=== PATIENT | male | born 1940 | race Caucasian/White ===

== ENCOUNTER 2016-11-12 16:28 | Emergency (ER) | payer MEDICARE, OTHER ==
[2016-11-12] MEDS ORDERED: Sodium Chloride 0.9% 10 ML Syringe FLUSH PRN (17:03)
[2016-11-12] MEDS ORDERED: Albuterol/Ipratropium 3.0-0.5 MG/3 ML Neb Soln NEB ONE (17:04)
[2016-11-12 17:43] VITALS: BP 173/91
[2016-11-12 18:09] LABS: CHLORIDE,CL 98 mmol/L (101-111); SODIUM,NA 139 mmol/L (135-145)
[2016-11-12] MEDS ORDERED: Aspirin 81 MG Tab.Chew PO ONE (18:35)
[2016-11-12] MEDS ORDERED: Clindamycin Phosphate 900 MG in Sodium Chloride 0.9% 100 ML IV ONE (18:36)
--- NOTE | 2016-11-12 19:00 | EDM.PDOC ---
Scribed by Denisse Carlin 11/12/16 1900 for Ashutosh Colin MD ED HISTORY OF PRESENT ILLNESS - General Chief Complaint: Respiratory Problem Stated Complaint: SOB Time Seen by Provider: 11/12/16 17:00 Source of Information: Reports: Patient, RN, RN notes reviewed History Limitations: Reports: No limitations - History of Present Illness INITIAL COMMENTS - FREE TEXT/NARRATIVE: Patient complaining of progressive worsening SOB x3-4 days with productive cough and green sputum. Admits to mild sore throat. Has a mild persistent chest pressure, but he isn't sure how long it has been there. Patient attributed the pressure to the cough. He has felt flush/feverish but didn't measure temperature. Severity: moderate Location, General: Reports: chest, other (throat) Quality: Reports: Ache Improves with: Reports: None Worsens with: Reports: None Associated Symptoms (General): Reports: no other symptoms - Related Data Allergies/ADRs: Allergies Allergy/AdvReac Type Severity Reaction Status Date / Time cefotaxime Allergy Rash Verified 10/31/15 23:38 clonazepam Allergy Hallucinati Verified 10/31/15 23:38 ons erythromycin base Allergy Cannot Verified 10/31/15 23:38 Remember erythromycin lactobionate Allergy Rash Verified 10/31/15 23:38 [From Erythrocin] roflumilast Allergy Rash Verified 10/31/15 23:38 sulfamethoxazole Allergy Itching Verified 10/31/15 23:38 [From Bactrim] trimethoprim [From Bactrim] Allergy Itching Verified 10/31/15 23:38 lilac pink herb Allergy Rash Uncoded 12/04/13 19:55 Home Meds: Home Meds Furosemide [Lasix] 40 mg PO BID 12/04/13 [History] Multivitamin [One-A-Day Essential] 1 each PO DAILY 12/04/13 [History] Potassium Chloride [Potassium Chloride Solution] 20 meq PO DAILY 12/04/13 [ History] Tiotropium [Spiriva Handihaler] 1 cap INH DAILY 12/04/13 [History] atorvaSTATin [Lipitor] 20 mg PO BEDTIME 12/04/13 [History] metFORMIN [Glucophage XR] 2 tab PO BIDM 12/04/13 [History] Tolterodine [Detrol LA 24 Hr] 2 mg PO DAILY 07/27/14 [History] Diclofenac Sodium/Misoprostol [Arthrotec 75 mg-200 Mcg Tab] 75 mg PO BID [History] Albuterol Sulfate [Albuterol Sulfate] 1 ampule IH BID PRN 03/18/15 [History] Albuterol [Proventil HFA] 2 puff IH BID PRN 03/18/15 [History] Montelukast [Singulair] 10 mg PO BEDTIME 03/18/15 [History] Nitroglycerin [Nitrostat] 1 tab BUCCAL ASDIRECTED 03/18/15 [History] Apixaban [Eliquis] 08/21/16 [History] Apixaban [Eliquis] 2.5 mg PO BID 08/21/16 [History] PARoxetine [Paxil] 20 mg PO DAILY 08/21/16 [History] Past Medical History HEENT History: Reports: Impaired vision Other HEENT History: wears glasses Cardiovascular History: Reports: High cholesterol, Hypertension, [place], Stents Respiratory History: Reports: Bronchitis, recurrent, COPD, SOB Genitourinary History: Reports: BPH Musculoskeletal History: Reports: Osteoarthritis Psychiatric History: Reports: Anxiety, Depression Endocrine/Metabolic History: Reports: Diabetes, type II - Past Surgical History HEENT Surgical History: Reports: Cataract surgery GI Surgical History: Reports: Cholecystectomy Social & Family History - Family History Family Medical History: Noncontributory - Tobacco Use Smoking Status *Q: Former Smoker Years of Tobacco use: 40 Used Tobacco, but Quit: Yes Month Tobacco Last Used: 04/1995 Second Hand Smoke Exposure: No - Caffeine Use Caffeine Use: Reports: Coffee, Soda - Alcohol Use Days Per Week of Alcohol Use: 0 - Recreational Drug Use Recreational Drug Use: No - Living Situation & Occupation Living situation: Reports: , with spouse Occupation: retired ED ROS GENERAL - Review of Systems Review Of Systems: ROS reveals no pertinent complaints other than HPI. ED EXAM, GENERAL - Physical Exam Exam: See Below Exam Limited By: No limitations General Appearance: other (chronically ill appearing) Eye Exam: bilateral eye: normal inspection Ears: normal external exam, normal canal, hearing grossly normal, normal TMs Nose: normal inspection, normal mucosa, no blood Throat/Mouth: Other (dry oral membranes. Mild pharyngeal erythema.) Neck: normal inspection, supple, non-tender, full range of motion Respiratory/Chest: rhonchi (left base rhonchi.), wheezing (mild wheezes throughout. ), other (decreased breath sounds in bilateral bases. ) Cardiovascular: normal peripheral pulses, regular rate, rhythm, no edema, no gallop, no JVD, no murmur, no rub GI/Abdominal: normal bowel sounds, soft, non tender, no organomegaly, no distention, no abnormal bruit, no mass Back Exam: normal inspection, full range of motion, NT Extremities: no pedal edema Neurological: alert, oriented, CN II-XII intact, normal cognition, normal gait, normal reflexes, no motor/sensory deficits Psychiatric: normal affect, normal mood Skin Exam: Other (chronic scattered superficial contusion.) EKG INTERPRETATION EKG Date: 11/12/16 Time: 16:27 Rhythm: other (sinus rhythm.) Rate (beats/min): 92 [place]: normal P-wave: present QRS: other (1st degree AV block.) ST-T: other (repolarization abnormality anterior and lateral leads.) QT: prolonged (interval.) Comparison: change from previous EKG (compared to 08/21/16. Anterior lateral repolarization abnormality and prolonged QT interval are new.) Course - Vital Signs Last Recorded V/S: Last Vital Signs Temp 36.6 C 11/12/16 16:40 Pulse 101 H 11/12/16 16:40 Resp 16 11/12/16 16:40 BP 173/91 H 11/12/16 16:40 Pulse Ox 95 11/12/16 16:40 - Orders/Labs/Meds Orders: Active Orders 24 hr Category Date Time Status EKG 12 Lead [EKG Documentation Completion] [RC] STAT Care 11/12/16 17:03 Active Peripheral IV Care [RC] . DIRECTED Care 11/12/16 17:04 Active RT Aerosol Therapy [RC] ASDIRECTED Care 11/12/16 17:04 Active CULTURE BLOOD [BC] Stat Lab 11/12/16 17:25 Received CULTURE BLOOD [BC] Stat Lab 11/12/16 17:35 Received Clindamycin Phosphate [Cleocin] 900 mg Med 11/12/16 18:36 Active Sodium Chloride 0.9% [Normal Saline] 100 ml IV ONETIME Sodium Chloride 0.9% [Saline Flush] Med 11/12/16 17:03 Active 10 ml FLUSH ASDIRECTED PRN Blood Culture x2 Reflex Set [OM.PC] Stat Oth 11/12/16 17:03 Ordered Peripheral IV Insertion Adult [OM.PC] Stat Oth 11/12/16 17:03 Ordered Medication Orders Clindamycin Phosphate 900 mg/ (Sodium Chloride) 106 mls @ 200 mls/hr IV ONETIME ONE Stop: 11/12/16 19:07 Last Admin: 11/12/16 18:50 Dose: 200 mls/hr Sodium Chloride (Saline Flush) 10 ml FLUSH ASDIRECTED PRN PRN Reason: Keep Vein Open Last Admin: 11/12/16 17:47 Dose: 10 ml Labs: Laboratory Tests 11/12/16 11/12/16 11/12/16 Range/Units 17:25 17:25 17:25 WBC 6.3 (5.0-10.0) 10^3/uL RBC 3.71 L (4.6-6.2) 10^6/uL Hgb 12.9 L (14.0-18.0) g/dL Hct 37.6 L (40.0-54.0) % MCV 101.3 H (80-100) fL MCH 34.8 H (27.0-34.0) pg MCHC 34.3 (33.0-35.0) g/dL Plt Count 180 (150-450) 10^3/uL Neut % (Auto) 85.0 H (42.2-75.2) % Lymph % (Auto) 9.5 L (20.5-50.1) % [place] % (Auto) 4.3 (2-8) % Eos % (Auto) 0.6 L (1.0-3.0) % Baso % (Auto) 0.6 (0.0-1.0) % Sodium 139 (135-145) mmol/L Potassium 4.3 (3.6-5.0) mmol/L Chloride 98 L (101-111) mmol/L Carbon Dioxide 28.0 (21.0-31.0) mmol/L Anion Gap 17.3 BUN 17 (7-18) mg/dL Creatinine 1.0 (0.6-1.3) mg/dL Est Cr Clr Drug Dosing 52.96 mL/min Estimated GFR (MDRD) > 60 BUN/Creatinine Ratio 17.00 Glucose 170 H (74-105) mg/dL Lactic Acid (0.5-2.2) mmol/L Calcium 9.5 (8.4-10.2) mg/dl Total Bilirubin 0.8 (0.2-1.0) mg/dL AST 29 (10-42) IU/L ALT 19 (10-60) IU/L Alkaline Phosphatase 97 (42-121) IU/L Creatine Kinase 27 (26-174) IU/L Creatine Kinase Index 6.7 H (0-2.4) % CK-MB (CK-2) 1.80 (0.4-4.7) ng/mL Troponin I 0.04 H* (0.00-0.02) ng/ml B-Natriuretic Peptide 124 H (0-100) pg/ml Total Protein 6.8 (6.7-8.2) g/dl Albumin 3.9 (3.2-5.5) g/dl Globulin 2.9 Albumin/Globulin Ratio 1.34 03/12/17 Range/Units 17:25 WBC (5.0-10.0) 10^3/uL RBC (4.6-6.2) 10^6/uL Hgb (14.0-18.0) g/dL Hct (40.0-54.0) % MCV (80-100) fL MCH (27.0-34.0) pg MCHC (33.0-35.0) g/dL Plt Count (150-450) 10^3/uL Neut % (Auto) (42.2-75.2) % Lymph % (Auto) (20.5-50.1) % [place] % (Auto) (2-8) % Eos % (Auto) (1.0-3.0) % Baso % (Auto) (0.0-1.0) % Sodium (135-145) mmol/L Potassium (3.6-5.0) mmol/L Chloride (101-111) mmol/L Carbon Dioxide (21.0-31.0) mmol/L Anion Gap BUN (7-18) mg/dL Creatinine (0.6-1.3) mg/dL Est Cr Clr Drug Dosing mL/min Estimated GFR (MDRD) BUN/Creatinine Ratio Glucose (74-105) mg/dL Lactic Acid 4.4 H (0.5-2.2) mmol/L Calcium (8.4-10.2) mg/dl Total Bilirubin (0.2-1.0) mg/dL AST (10-42) IU/L ALT (10-60) IU/L Alkaline Phosphatase (42-121) IU/L Creatine Kinase (26-174) IU/L Creatine Kinase Index (0-2.4) % CK-MB (CK-2) (0.4-4.7) ng/mL Troponin I (0.00-0.02) ng/ml B-Natriuretic Peptide (0-100) pg/ml Total Protein (6.7-8.2) g/dl Albumin (3.2-5.5) g/dl Globulin Albumin/Globulin Ratio Rapid strep: Positive Meds: Medications Generic Name Dose Route Start Last Admin Trade Name Freq PRN Reason Stop Dose Admin Clindamycin Phosphate 900 mg/ 106 mls @ 200 mls/hr 11/12/16 18:36 11/12/16 18 :50 Sodium Chloride IV 11/12/16 19:07 200 mls/hr ONETIME ONE Administration Sodium Chloride 10 ml 11/12/16 17:03 11/12/16 17:47 Saline Flush FLUSH 10 ml ASDIRECTED PRN Administration Keep Vein Open Discontinued Medications Generic Name Dose Route Start Last Admin Trade Name Freq PRN Reason Stop Dose Admin Albuterol/Ipratropium 3 ml 11/12/16 17:04 11/12/16 17:26 Duoneb 3.0-0.5 Mg/3 Ml NEB 11/12/16 17:05 3 ml ONETIME ONE Administration Aspirin 324 mg 11/12/16 18:35 11/12/16 18:49 Aspirin PO 11/12/16 18:36 324 mg ONETIME ONE Administration - Radiology Interpretation Free Text/Narrative:: Chest x-ray: Patchy ateclectasis in left lower lobe per rad report. CT Results Date: 11/12/16 Departure - Departure Time of Disposition: 18:56 Disposition: DC/Tfer to Acute Hospital 02 Condition: serious Clinical Impression: Non-STEMI (non-ST elevated myocardial infarction), COPD with acute exacerbation Pneumonia Qualifiers: Pneumonia type: due to unspecified organism Laterality: left Lung location: lower lobe of lung Qualified Code(s): J18.1 - Lobar pneumonia, unspecified organism Forms: ED Department Discharge, Interfacility Transfer EMTALA - My Orders Last 24 Hours: My Active Orders 11/12/16 17:03 EKG 12 Lead [EKG Documentation Completion] [RC] STAT Sodium Chloride 0.9% [Saline Flush] 10 ml FLUSH ASDIRECTED PRN Blood Culture x2 Reflex Set [OM.PC] Stat Peripheral IV Insertion Adult [OM.PC] Stat 11/12/16 17:04 Peripheral IV Care [RC] . DIRECTED RT Aerosol Therapy [RC] ASDIRECTED 11/12/16 17:25 CULTURE BLOOD [BC] Stat 11/12/16 17:35 CULTURE BLOOD [BC] Stat 11/12/16 18:36 Clindamycin Phosphate [Cleocin] 900 mg Sodium Chloride 0.9% [Normal Saline] 100 ml IV ONETIME - Assessment/Plan Last 24 Hours: My Active Orders 11/12/16 17:03 EKG 12 Lead [EKG Documentation Completion] [RC] STAT Sodium Chloride 0.9% [Saline Flush] 10 ml FLUSH ASDIRECTED PRN Blood Culture x2 Reflex Set [OM.PC] Stat Peripheral IV Insertion Adult [OM.PC] Stat 11/12/16 17:04 Peripheral IV Care [RC] . DIRECTED RT Aerosol Therapy [RC] ASDIRECTED 11/12/16 17:25 CULTURE BLOOD [BC] Stat 11/12/16 17:35 CULTURE BLOOD [BC] Stat 11/12/16 18:36 Clindamycin Phosphate [Cleocin] 900 mg Sodium Chloride 0.9% [Normal Saline] 100 ml IV ONETIME I have read and agree with the documentation that has been completed regarding this visit. By signing this record, I attest that the documentation was completed in my physical presence and is an accurate record of the encounter.
--- NOTE | 2016-12-25 13:01 | EKG ---
11/24/2016 - ARGENTINA BOYCE - A 12-lead EKG shows first-degree AV block, lot of noise noted secondary to lead placement. No significant ST elevation or ST depression noted, HI interval of 192. [facility] /[id number]
== END 2016-11-12 19:30 ==
LOC: DL.ED 16:28
DX: I21.4 Non-ST elevation (NSTEMI) myocardial infarction (principal); J18.1 Lobar pneumonia, unspecified organism; J44.1 Chronic obstructive pulmonary disease with (acute) exacerbation; E78.00 Pure hypercholesterolemia, unspecified; I10 Essential (primary) hypertension; I25.2 Old myocardial infarction; M19.90 Unspecified osteoarthritis, unspecified site; F41.9 Anxiety disorder, unspecified; F32.9 Major depressive disorder, single episode, unspecified; E11.9 Type 2 diabetes mellitus without complications; Z87.891 Personal history of nicotine dependence; Z98.49 Cataract extraction status, unspecified eye; Z90.49 Acquired absence of other specified parts of digestive tract; Z79.84 Long term (current) use of oral hypoglycemic drugs; Z79.899 Other long term (current) drug therapy; Z88.2 Allergy status to sulfonamides; Z88.1 Allergy status to other antibiotic agents; Z88.8 Allergy status to other drugs, medicaments and biological substances
CPT/HCPCS: 36415; 71010; 80053; 82550; 82553; 83605; 83880; 84484; 85025; 87040; 87430; 93005; 93010; 94640; 96365; 99285; A9270; J7050; 99284; S0077

== ENCOUNTER 2017-02-05 00:37 | Emergency (ER) | payer MEDICARE, OTHER ==
[2017-02-05 00:50] VITALS: BP 129/76
--- NOTE | 2017-02-05 01:53 | EDM.PDOC ---
ED HPI GENERAL MEDICAL PROBLEM - General Chief Complaint: Genitourinary Problem Stated Complaint: HORRIBLE BACK PAIN/BURNING PAIN URINATING Time Seen by Provider: 02/05/17 01:25 Source of Information: Reports: Patient, Family History Limitations: Reports: No Limitations - History of Present Illness INITIAL COMMENTS - FREE TEXT/NARRATIVE: c/o pain to low back, worse since fall one week ago, was treated for URI and ITI. Finished levaquin. Was also prescribed Macrobid, but urinary pain seemed worse with antibiotic so clinic told him to stop. Also breathing "tough" Denies fever. Last tylenol yesterday. Family state patient woke at 1230 with back pain and told her he need to go to ER, Refused tylenol at home. Lower Back Pain Score (Numeric/FACES): 7 - Related Data Allergies Allergy/AdvReac Type Severity Reaction Status Date / Time cefotaxime Allergy Rash Verified 02/05/17 00:50 clonazepam Allergy Hallucinati Verified 02/05/17 00:50 ons erythromycin base Allergy Cannot Verified 02/05/17 00:50 Remember erythromycin lactobionate Allergy Rash Verified 02/05/17 00:50 [From Erythrocin] roflumilast Allergy Rash Verified 02/05/17 00:50 sulfamethoxazole Allergy Itching Verified 02/05/17 00:50 [From Bactrim] trimethoprim [From Bactrim] Allergy Itching Verified 02/05/17 00:50 lilac pink herb Allergy Rash Uncoded 12/04/13 19:55 Home Meds: Home Meds Furosemide [Lasix] 40 mg PO BID 12/04/13 [History] Multivitamin [One-A-Day Essential] 1 each PO DAILY 12/04/13 [History] Tiotropium [Spiriva Handihaler] 1 cap INH DAILY 12/04/13 [History] atorvaSTATin [Lipitor] 20 mg PO BEDTIME 12/04/13 [History] metFORMIN [Glucophage XR] 2 tab PO BIDM 12/04/13 [History] Tolterodine [Detrol LA 24 Hr] 2 mg PO BID 07/27/14 [History] Albuterol Sulfate [Albuterol Sulfate] 1 ampule IH BID PRN 03/18/15 [History] Albuterol [Proventil HFA] 2 puff IH BID PRN 03/18/15 [History] Montelukast [Singulair] 10 mg PO BEDTIME 03/18/15 [History] Nitroglycerin [Nitrostat] 1 tab BUCCAL ASDIRECTED 03/18/15 [History] Apixaban [Eliquis] 2.5 mg PO BID 08/21/16 [History] Budesonide [Pulmicort] 0.5 mg IH BID 02/05/17 [History] Diclofenac Sodium/Misoprostol [Diclofenac-Misoprost 75-0.2 Tb] 1 each PO BID 01/17 [History] Escitalopram [Lexapro] 20 mg PO DAILY 02/05/17 [History] Formoterol [Perforomist] 20 mcg NEB BIDRT 02/05/17 [History] Ipratropium/Albuterol Sulfate [Iprat-Albut 0.5-3(2.5) mg/3 ml] 3 ml IH TID 02/05 [History] LORazepam [Ativan] 0.5 mg PO BID PRN 02/05/17 [History] Mirabegron [Myrbetriq] 50 mg PO QPM 02/05/17 [History] Prednisone [IJD: Prednisone] 10 mg PO DAILY 02/05/17 [History] Past Medical History HEENT History: Reports: Impaired Vision Other HEENT History: wears glasses Cardiovascular History: Reports: High Cholesterol, Hypertension, [place], Stents Respiratory History: Reports: Bronchitis, Recurrent, COPD, SOB Genitourinary History: Reports: BPH Musculoskeletal History: Reports: Osteoarthritis Psychiatric History: Reports: Anxiety, Depression Endocrine/Metabolic History: Reports: Diabetes, Type II - Past Surgical History HEENT Surgical History: Reports: Cataract Surgery Cardiovascular Surgical History: Reports: Coronary Artery Stent, Valve Replacement GI Surgical History: Reports: Cholecystectomy Musculoskeletal Surgical History: Reports: Knee Replacement Social & Family History - Family History Family Medical History: Noncontributory - Tobacco Use Smoking Status *Q: Former Smoker Years of Tobacco use: 40 Used Tobacco, but Quit: Yes Month Tobacco Last Used: april 14 1976 Second Hand Smoke Exposure: No - Caffeine Use Caffeine Use: Reports: Coffee, Soda - Alcohol Use Days Per Week of Alcohol Use: 0 - Recreational Drug Use Recreational Drug Use: No - Living Situation & Occupation Living situation: Reports: , with Spouse Occupation: Retired ED ROS GENERAL - Review of Systems Review Of Systems: See Below Constitutional: Reports: Decreased Appetite HEENT: Reports: No Symptoms Respiratory: Reports: Shortness of Breath (chronic COPD hx) Cardiovascular: Reports: Dyspnea on Exertion (chronic), Lightheadedness (chronic ) GI/Abdominal: Reports: Decreased Appetite. Denies: Abdominal Pain, Bloody Stool , Constipation, Melena, Nausea : Reports: Dysuria, Frequency Musculoskeletal: Reports: Back Pain (lumbar worse after fall one week ago) Skin: Reports: Bruising Neurological: Reports: No Symptoms Hematologic/Lymphatic: Reports: Easy Bruising ED EXAM, GENERAL - Physical Exam Exam: See Below Exam Limited By: No Limitations General Appearance: Alert, Mild Distress Eye Exam: Bilateral Eye: EOMI Ears: Normal External Exam, Normal TMs Nose: Normal Inspection Throat/Mouth: Normal Inspection Head: Atraumatic, Normocephalic Neck: Normal Inspection Respiratory/Chest: No Respiratory Distress, Decreased Breath Sounds (bases) Cardiovascular: Normal Peripheral Pulses, Regular Rate, Rhythm GI/Abdominal: Normal Bowel Sounds, Soft, Tender (suprapubic). No: Guarding Rectal (Males) Exam: Normal Exam, Heme - Stool Back Exam: Paraspinal Tenderness. No: CVA Tenderness (L), CVA Tenderness (R), Vertebral Tenderness Extremities: Normal Inspection Neurological: Alert, Oriented Psychiatric: Flat Affect Skin Exam: Warm, Dry, Ecchymosis Course - Vital Signs Last Recorded V/S: Last Vital Signs Temp 98 F 02/05/17 00:43 Pulse 103 H 02/05/17 00:43 Resp 18 02/05/17 00:43 BP 129/76 02/05/17 00:43 Pulse Ox 100 02/05/17 00:43 - Orders/Labs/Meds Orders: Active Orders 24 hr Category Date Time Status CULTURE BLOOD [BC] Stat Lab 02/05/17 01:20 Results CULTURE BLOOD [BC] Stat Lab 02/05/17 02:00 Received CULTURE URINE [RM] Stat Lab 02/05/17 01:25 Received Blood Culture x2 Reflex Set [OM.PC] Stat Oth 02/05/17 01:56 Ordered Labs: Laboratory Tests 02/05/17 02/05/17 02/05/17 Range/Units 01:20 01:20 01:20 WBC 11.0 H (5.0-10.0) 10^3/uL RBC 2.82 L (4.6-6.2) 10^6/uL Hgb 7.3 L (14.0-18.0) g/dL Hct 24.6 L (40.0-54.0) % MCV 87.2 (80-100) fL MCH 25.9 L (27.0-34.0) pg MCHC 29.7 L (33.0-35.0) g/dL Plt Count 295 (150-450) 10^3/uL Neut % (Auto) 74.6 (42.2-75.2) % Lymph % (Auto) 15.1 L (20.5-50.1) % [place] % (Auto) 8.5 H (2-8) % Eos % (Auto) 1.7 (1.0-3.0) % Baso % (Auto) 0.1 (0.0-1.0) % PT (9.0-12.0) SEC INR (0.9-1.2) Sodium 133 L (135-145) mmol/L Potassium 4.6 (3.6-5.0) mmol/L Chloride 95 L (101-111) mmol/L Carbon Dioxide 25.0 (21.0-31.0) mmol/L Anion Gap 17.6 BUN 52 H (7-18) mg/dL Creatinine 1.6 H (0.6-1.3) mg/dL Est Cr Clr Drug Dosing 34.34 mL/min Estimated GFR (MDRD) 42 BUN/Creatinine Ratio 32.50 Glucose 124 H (74-105) mg/dL Lactic Acid 4.3 H (0.5-2.2) mmol/L Calcium 9.1 (8.4-10.2) mg/dl Total Bilirubin 0.3 (0.2-1.0) mg/dL AST 31 (10-42) IU/L ALT 25 (10-60) IU/L Alkaline Phosphatase 86 (42-121) IU/L B-Natriuretic Peptide (0-100) pg/ml Total Protein 6.4 L (6.7-8.2) g/dl Albumin 3.1 L (3.2-5.5) g/dl Globulin 3.3 Albumin/Globulin Ratio 0.94 Urine Color (YELLOW) Urine Appearance (CLEAR) Urine pH (5.0-9.0) Ur Specific [place] (1.005-1.030) Urine Protein (NEGATIVE) Urine Glucose (UA) (NEGATIVE) Urine Ketones (NEGATIVE) Urine Occult Blood (NEGATIVE) Urine Nitrite (NEGATIVE) Urine Bilirubin (NEGATIVE) Urine Urobilinogen (0.2-1.0) mg/dL Ur Leukocyte Esterase (NEGATIVE) Urine RBC /HPF Urine WBC (0-5/HPF) /HPF Ur Epithelial Cells /HPF Urine Bacteria (0-FEW/HPF) /HPF 02/05/17 02/05/17 02/05/17 Range/Units 01:20 01:20 01:25 WBC (5.0-10.0) 10^3/uL RBC (4.6-6.2) 10^6/uL Hgb (14.0-18.0) g/dL Hct (40.0-54.0) % MCV (80-100) fL MCH (27.0-34.0) pg MCHC (33.0-35.0) g/dL Plt Count (150-450) 10^3/uL Neut % (Auto) (42.2-75.2) % Lymph % (Auto) (20.5-50.1) % [place] % (Auto) (2-8) % Eos % (Auto) (1.0-3.0) % Baso % (Auto) (0.0-1.0) % PT 10.3 (9.0-12.0) SEC INR 1.0 (0.9-1.2) Sodium (135-145) mmol/L Potassium (3.6-5.0) mmol/L Chloride (101-111) mmol/L Carbon Dioxide (21.0-31.0) mmol/L Anion Gap BUN (7-18) mg/dL Creatinine (0.6-1.3) mg/dL Est Cr Clr Drug Dosing mL/min Estimated GFR (MDRD) BUN/Creatinine Ratio Glucose (74-105) mg/dL Lactic Acid (0.5-2.2) mmol/L Calcium (8.4-10.2) mg/dl Total Bilirubin (0.2-1.0) mg/dL AST (10-42) IU/L ALT (10-60) IU/L Alkaline Phosphatase (42-121) IU/L B-Natriuretic Peptide 96 (0-100) pg/ml Total Protein (6.7-8.2) g/dl Albumin (3.2-5.5) g/dl Globulin Albumin/Globulin Ratio Urine Color Yellow (YELLOW) Urine Appearance Cloudy (CLEAR) Urine pH 5.0 (5.0-9.0) Ur Specific [place] 1.010 (1.005-1.030) Urine Protein 30 H (NEGATIVE) Urine Glucose (UA) Negative (NEGATIVE) Urine Ketones Negative (NEGATIVE) Urine Occult Blood Large H (NEGATIVE) Urine Nitrite Positive H (NEGATIVE) Urine Bilirubin Negative (NEGATIVE) Urine Urobilinogen 0.2 (0.2-1.0) mg/dL Ur Leukocyte Esterase Large H (NEGATIVE) Urine RBC 5-10 H /HPF Urine WBC Packed H (0-5/HPF) /HPF Ur Epithelial Cells Few /HPF Urine Bacteria Many H (0-FEW/HPF) /HPF Meds: Medications Discontinued Medications Generic Name Dose Route Start Last Admin Trade Name Freq PRN Reason Stop Dose Admin Piperacillin Sod/Tazobactam 50 mls @ 100 mls/hr 02/05/17 02:22 02/05/17 02:35 Sod 2.25 gm/ Sodium Chloride IV 02/05/17 02:51 100 mls/hr ONETIME ONE Administration Oxycodone/Acetaminophen 1 tab 02/05/17 02:21 02/05/17 02:25 Percocet 325-5 Mg PO 02/05/17 02:22 1 tab ONETIME ONE Administration - Radiology Interpretation Free Text/Narrative:: CXR negative for acute process, Chronic scarring to lung bases CT spine L1 wedge compression fracture, diffuse osteopenia, incidental finding infrarenal abdominal aneurysm 3.5cm . - Re-Assessments/Exams Free Text/Narrative Re-Assessment/Exam: 02/05/17 03:02 TC consult regarding patient status with Dr. Willson. Due to multiple issues referred to [facility] Dr. Bravo accepting of patient. Tx via [facility]. Departure - Departure Time of Disposition: 03:35 Disposition: DC/Tfer to Acute Hospital 02 Condition: undetermined Clinical Impression: UTI, Urinary tract infectious disease, Compression fracture Anemia Qualifiers: Anemia type: unspecified type Qualified Code(s): D64.9 - Anemia, unspecified Renal failure Qualifiers: Renal failure chronicity: chronic Chronic kidney disease stage: unspecified stage Qualified Code(s): N18.9 - Chronic kidney disease, unspecified COPD (chronic obstructive pulmonary disease) Qualifiers: COPD type: unspecified COPD Qualified Code(s): J44.9 - Chronic obstructive pulmonary disease, unspecified - Discharge Information Referrals: PCP,Unobtain [Ordering Only Provider] - Forms: ED Department Discharge - My Orders Last 24 Hours: My Active Orders 02/05/17 01:20 CULTURE BLOOD [BC] Stat 02/05/17 01:25 CULTURE URINE [RM] Stat 02/05/17 01:56 Blood Culture x2 Reflex Set [OM.PC] Stat 02/05/17 02:00 CULTURE BLOOD [BC] Stat - Assessment/Plan Last 24 Hours: My Active Orders 02/05/17 01:20 CULTURE BLOOD [BC] Stat 02/05/17 01:25 CULTURE URINE [RM] Stat 02/05/17 01:56 Blood Culture x2 Reflex Set [OM.PC] Stat 02/05/17 02:00 CULTURE BLOOD [BC] Stat
[2017-02-05] MEDS ORDERED: Acetaminophen/oxyCODONE 325-5 MG Tab PO ONE (02:21)
[2017-02-05] MEDS ORDERED: Piperacillin/Tazobactam 2.25 GM in Sodium Chloride 0.9% 50 ML IV ONE (02:22)
== END 2017-02-05 03:35 ==
LOC: DL.ED 00:37
DX: N39.0 Urinary tract infection, site not specified (principal); D64.9 Anemia, unspecified; I12.9 Hypertensive chronic kidney disease with stage 1 through stage 4 chronic kidney disease, or unspecified chronic kidney disease; N18.9 Chronic kidney disease, unspecified; J44.9 Chronic obstructive pulmonary disease, unspecified; R06.02 Shortness of breath; H54.7 Unspecified visual loss; E78.00 Pure hypercholesterolemia, unspecified; E11.9 Type 2 diabetes mellitus without complications; I25.2 Old myocardial infarction; M19.90 Unspecified osteoarthritis, unspecified site; F41.9 Anxiety disorder, unspecified; F32.9 Major depressive disorder, single episode, unspecified; Z90.49 Acquired absence of other specified parts of digestive tract; Z98.49 Cataract extraction status, unspecified eye; Z96.659 Presence of unspecified artificial knee joint; Z88.8 Allergy status to other drugs, medicaments and biological substances; Z88.6 Allergy status to analgesic agent; Z88.2 Allergy status to sulfonamides; Z79.899 Other long term (current) drug therapy; Z87.891 Personal history of nicotine dependence; Z95.5 Presence of coronary angioplasty implant and graft; Z79.84 Long term (current) use of oral hypoglycemic drugs
CPT/HCPCS: 36415; 71010; 72131; 80053; 81001; 82272; 83605; 83880; 85025; 85610; 87040; 87086; 87088; 87186; 96365; 99285; A9270; J2543; J7050

== ENCOUNTER 2017-04-20 16:42 | Emergency (ER) | payer MEDICARE, OTHER ==
--- NOTE | 2017-04-20 17:18 | EDM.PDOC ---
ED HPI GENERAL MEDICAL PROBLEM - General Chief Complaint: Laceration Stated Complaint: HIT HEAD, COMING BY AMBULANCE Time Seen by Provider: 04/20/17 17:00 Source of Information: Reports: Patient History Limitations: Reports: No Limitations - History of Present Illness INITIAL COMMENTS - FREE TEXT/NARRATIVE: This 76 yo male patient reports to the ED by [facility] due to a ground level fall with a laceration on his head, abrasion on his face, abrasion on his right forearm and an abrasion on his right knee. The patient reports no loss of consciousness before, during or after the fall. The patient reports he got his feet twisted in the oxygen tubing causing him to fall. Onset: Today, Sudden Duration: Minutes:, Constant Location: Reports: Head, Face, Upper Extremity, Right, Lower Extremity, Right Quality: Reports: Ache, Dull Severity: Mild Improves with: Reports: None Worsens with: Reports: None Associated Symptoms: Reports: No Other Symptoms Head Pain Score (Numeric/FACES): 7 - Related Data Allergies Allergy/AdvReac Type Severity Reaction Status Date / Time cefotaxime Allergy Rash Verified 04/20/17 17:04 clonazepam Allergy Hallucinati Verified 04/20/17 17:04 ons erythromycin base Allergy Cannot Verified 04/20/17 17:04 Remember erythromycin lactobionate Allergy Rash Verified 04/20/17 17:04 [From Erythrocin] roflumilast Allergy Rash Verified 04/20/17 17:04 sulfamethoxazole Allergy Itching Verified 04/20/17 17:04 [From Bactrim] trimethoprim [From Bactrim] Allergy Itching Verified 04/20/17 17:04 lilac pink herb Allergy Rash Uncoded 03/15/17 14:23 Home Meds: Home Meds Furosemide [Lasix] 40 mg PO BID 12/04/13 [History] Multivitamin [One-A-Day Essential] 1 each PO DAILY 12/04/13 [History] Tiotropium [Spiriva Handihaler] 1 cap INH DAILY 12/04/13 [History] atorvaSTATin [Lipitor] 20 mg PO BEDTIME 12/04/13 [History] metFORMIN [Glucophage XR] 2 tab PO BIDM 12/04/13 [History] Tolterodine [Detrol LA 24 Hr] 2 mg PO BID 07/27/14 [History] Albuterol Sulfate [Albuterol Sulfate] 1 ampule IH BID PRN 03/18/15 [History] Albuterol [Proventil HFA] 2 puff IH BID PRN 03/18/15 [History] Montelukast [Singulair] 10 mg PO BEDTIME 03/18/15 [History] Nitroglycerin [Nitrostat] 1 tab BUCCAL ASDIRECTED 03/18/15 [History] Budesonide [Pulmicort] 0.5 mg IH BID 02/05/17 [History] Diclofenac Sodium/Misoprostol [Diclofenac-Misoprost 75-0.2 Tb] 1 each PO BID 01/17 [History] Escitalopram [Lexapro] 20 mg PO DAILY 02/05/17 [History] Formoterol [Perforomist] 20 mcg NEB BIDRT 02/05/17 [History] Ipratropium/Albuterol Sulfate [Iprat-Albut 0.5-3(2.5) mg/3 ml] 3 ml IH TID 02/05 [History] LORazepam [Ativan] 0.5 mg PO BID PRN 02/05/17 [History] Mirabegron [Myrbetriq] 50 mg PO QPM 02/05/17 [History] Prednisone [IJD: Prednisone] 5 - 10 mg PO ASDIRECTED 02/05/17 [History] Amoxicillin 4 tab PO ASDIRECTED 03/15/17 [History] Aspirin 1 tab PO DAILY 03/15/17 [History] Potassium Chloride 2 tab PO DAILY 03/15/17 [History] Past Medical History HEENT History: Reports: Impaired Vision Other HEENT History: wears glasses Cardiovascular History: Reports: High Cholesterol, Hypertension, [place], Stents Respiratory History: Reports: Asthma, Bronchitis, Recurrent, COPD, SOB, Other ( See Below) Other Respiratory History: emphysema Gastrointestinal History: Reports: None Genitourinary History: Reports: BPH Musculoskeletal History: Reports: Osteoarthritis Neurological History: Reports: CVA Psychiatric History: Reports: Anxiety, Depression Endocrine/Metabolic History: Reports: Diabetes, Type II Hematologic History: Reports: Anemia Immunologic History: Reports: None Oncologic (Cancer) History: Reports: Bladder Dermatologic History: Reports: Other (See Below) Other Dermatologic History: multiple ecchymotic areas - Infectious Disease History Infectious Disease History: Reports: Other (See Below) Other Infectious Disease History: unknown - Past Surgical History HEENT Surgical History: Reports: Cataract Surgery Cardiovascular Surgical History: Reports: Coronary Artery Stent, Valve Replacement GI Surgical History: Reports: Cholecystectomy, Hernia, Abdominal Musculoskeletal Surgical History: Reports: Knee Replacement Social & Family History - Family History Family Medical History: Noncontributory - Tobacco Use Smoking Status *Q: Former Smoker Years of Tobacco use: 50 Used Tobacco, but Quit: Yes Month Tobacco Last Used: april 14 1976 Second Hand Smoke Exposure: No - Caffeine Use Caffeine Use: Reports: Coffee, Soda - Alcohol Use Days Per Week of Alcohol Use: 0 - Recreational Drug Use Recreational Drug Use: No - Living Situation & Occupation Living situation: Reports: , with Spouse Occupation: Retired ED ROS GENERAL - Review of Systems Review Of Systems: ROS reveals no pertinent complaints other than HPI. ED EXAM, SKIN/RASH Exam: See Below Exam Limited By: No Limitations General Appearance: Alert, WD/WN, Mild Distress Eye Exam: Bilateral Eye: EOMI, Normal Inspection, PERRL Ears: Normal External Exam, Normal Canal, Hearing Grossly Normal, Normal TMs Nose: Normal Inspection, Normal Mucosa, No Blood Throat/Mouth: Normal Inspection, Normal Lips, Normal Teeth, Normal Gums, Normal Oropharynx, Normal Voice, No Airway Compromise Head: Facial Tenderness, Other (head laceration with scalp tenderness) Neck: Normal Inspection, Supple, Non-Tender, Full Range of Motion Respiratory/Chest: Decreased Breath Sounds, Rhonchi, Wheezing, Other (chronic COPD) Cardiovascular: Normal Peripheral Pulses, Regular Rate, Rhythm, No Edema, No Gallop, No JVD, No Murmur, No Rub GI/Abdominal: Normal Bowel Sounds, Soft, Non-Tender, No Organomegaly, No Distention, No Abnormal Bruit, No Mass (Male) Exam: Deferred Rectal (Males) Exam: Deferred Back Exam: Normal Inspection, Full Range of Motion, NT Extremities: Normal Range of Motion, Non-Tender, No Pedal Edema, Normal Capillary Refill Neurological: Alert, Oriented, CN II-XII Intact, Normal Cognition, Normal Gait, Normal Reflexes, No Motor/Sensory Deficits Psychiatric: Normal Affect, Normal Mood Skin: Warm, Dry, Normal Color, No Rash Location, Skin: Head (laceration), Face (abrasion on nose), Upper Extremity, Right (skin tear right arm distal to elbow), Lower Extremity, Right (abrasion to right knee) Characteristics: Other Associated features: Tenderness Lymphatic: No Adenopathy ED SKIN PROCEDURES - Laceration/Wound Repair Upper Head Lac/Wound length In cm: 15 Appearance: Subcutaneous, Linear, Irregular, Moderately Contaminated Anesthetic Type: Local Local Anesthesia - Lidocaine (Xylocaine): 1% Plain Local Anesthetic Volume: Other (8 mL) Skin Prep: Chlorhexidine (Hibiciens), Saline Exploration/Debridement/Repair: Wound Explored, In a Bloodless Field, Explored to Base, No Foreign Material Found Closed with: Sutures Suture Size: 3-0 # of Sutures: 22 Suture Type: Prolene, Interrupted, Simple Drain Placement: No Sterile Dressing Applied: Nurse Tetanus Status Addressed: Yes Complications: No Course - Vital Signs Last Recorded V/S: Last Vital Signs Temp 36.6 C 04/20/17 16:42 Pulse 81 04/20/17 16:42 Resp 18 04/20/17 16:42 BP 134/87 04/20/17 16:42 Pulse Ox 100 04/20/17 16:42 - Orders/Labs/Meds Orders: Active Orders 24 hr Category Date Time Status Vaccines to be Administered [RC] PER UNIT ROUTINE Care 04/20/17 17:58 Ordered Meds: Medications Discontinued Medications Generic Name Dose Route Start Last Admin Trade Name Freq PRN Reason Stop Dose Admin Bacitracin 1 dose 04/20/17 17:49 04/20/17 18:13 Bacitracin Oint 1 Gm TOP 04/20/17 17:50 1 dose ONETIME ONE Administration Diphtheria/Tetanus/Acell Pertussis 0.5 ml 04/20/17 17:58 04/20/17 18:12 Adacel IM 04/20/17 17:59 0.5 ml .ONCE ONE Administration Lidocaine HCl 30 ml 04/20/17 17:49 04/20/17 18:13 Xylocaine-Mpf 1% INJECT 04/20/17 17:50 30 ml ONETIME ONE Administration Departure - Departure Time of Disposition: 18:51 Disposition: Home, Self-Care 01 Condition: Fair Clinical Impression: Abrasion, nose w/o infection, Abrasion, right knee, initial encounter Fall Qualifiers: Encounter type: initial encounter Qualified Code(s): W19.XXXA - Unspecified fall, initial encounter Scalp laceration Qualifiers: Encounter type: initial encounter Qualified Code(s): S01.01XA - Laceration without foreign body of scalp, initial encounter Skin tear of right elbow without complication Qualifiers: Encounter type: initial encounter Qualified Code(s): S51.011A - Laceration without foreign body of right elbow, initial encounter - Discharge Information Instructions: Stitches, [place], or Adhesive Wound Closure, [id number], Laceration Care, Adult, [id number], Fall Prevention in the Home, [id number] , Abrasion, [id number] Forms: ED Department Discharge Care Plan Goals: The patient and family were advised of the examination and CT results during the visit. The skin margins of the laceration on the scalp were well approximated during the visit. The patient's abrasion was cleaned and dressed. The patient should have his sutures removed in 14 days. If the patient has any additional symptoms or concerns, the patient should follow-up with his primary care provider or return to the emergency department. - My Orders Last 24 Hours: My Active Orders 04/20/17 17:58 Vaccines to be Administered [RC] PER UNIT ROUTINE - Assessment/Plan Last 24 Hours: My Active Orders 04/20/17 17:58 Vaccines to be Administered [RC] PER UNIT ROUTINE
[2017-04-20] MEDS ORDERED: Lidocaine 1% 30 ML SDV INJECT ONE (17:49)
[2017-04-20] MEDS ORDERED: Bacitracin Oint 1 GM U/D Packet TOP ONE (17:49)
[2017-04-20] MEDS ORDERED: Diphtheria,Pertussis(Acell),Tetanus Vaccine 0.5 ML SDV IM ONE (17:58)
[2017-04-20 19:07] VITALS: BP 136/76
== END 2017-04-20 19:19 | disposition home or self-care (01) ==
LOC: DL.ED 16:42
DX: S01.01XA Laceration without foreign body of scalp, initial encounter (principal); S51.011A Laceration without foreign body of right elbow, initial encounter; S80.211A Abrasion, right knee, initial encounter; I10 Essential (primary) hypertension; E78.00 Pure hypercholesterolemia, unspecified; I25.2 Old myocardial infarction; M19.90 Unspecified osteoarthritis, unspecified site; F41.9 Anxiety disorder, unspecified; F32.9 Major depressive disorder, single episode, unspecified; E11.9 Type 2 diabetes mellitus without complications; Z86.2 Personal history of diseases of the blood and blood-forming organs and certain disorders involving the immune mechanism; Z86.73 Personal history of transient ischemic attack (TIA), and cerebral infarction without residual deficits; Z95.2 Presence of prosthetic heart valve; Z98.890 Other specified postprocedural states; Z98.49 Cataract extraction status, unspecified eye; Z96.659 Presence of unspecified artificial knee joint; Z90.49 Acquired absence of other specified parts of digestive tract; Z87.891 Personal history of nicotine dependence; Z79.84 Long term (current) use of oral hypoglycemic drugs; Z79.82 Long term (current) use of aspirin; Z79.899 Other long term (current) drug therapy; Z88.1 Allergy status to other antibiotic agents; Z88.2 Allergy status to sulfonamides; Z88.8 Allergy status to other drugs, medicaments and biological substances; Z91.048 Other nonmedicinal substance allergy status; W01.0XXA Fall on same level from slipping, tripping and stumbling without subsequent striking against object, initial encounter
CPT/HCPCS: 12005; 70450; 72125; 90471; 90715; 99284

== ENCOUNTER 2017-04-26 09:07 | Observation (INO) | payer MEDICARE, OTHER ==
--- NOTE | 2017-04-26 09:34 | EDM.PDOC ---
ED HPI GENERAL MEDICAL PROBLEM - General Stated Complaint: IN BY AMBULANCE Time Seen by Provider: 04/26/17 09:28 Source of Information: Reports: Patient, EMS History Limitations: Reports: No Limitations - History of Present Illness INITIAL COMMENTS - FREE TEXT/NARRATIVE: This 76 yo male patient was brought to the ED by [facility] due to increased weakness. The patient reported to the ambulance that he is too weak to get around in his home. The patient was seen in the ED on 04/20/17 due to a ground level fall. The patient reports he has noticed increased shortness of breath over the past week. [facility] , but [facility] not like the [facility]. The patient currently lives with his son. The patient states that his is mad at him and his son "hates" him. The patient told the EMS crew that he was ready to [facility] to the [facility]. Onset: Gradual Duration: Day(s):, Constant, Getting Worse Location: Reports: Generalized Quality: Reports: Other (weakness) Severity: Moderate Improves with: Reports: Rest Worsens with: Reports: Movement Associated Symptoms: Reports: Weakness - Related Data Allergies Allergy/AdvReac Type Severity Reaction Status Date / Time cefotaxime Allergy Rash Verified 04/26/17 09:19 clonazepam Allergy Hallucinati Verified 04/26/17 09:19 ons erythromycin base Allergy Cannot Verified 04/26/17 09:19 Remember erythromycin lactobionate Allergy Rash Verified 04/26/17 09:19 [From Erythrocin] roflumilast Allergy Rash Verified 04/26/17 09:19 sulfamethoxazole Allergy Itching Verified 04/26/17 09:19 [From Bactrim] trimethoprim [From Bactrim] Allergy Itching Verified 04/26/17 09:19 lilac pink herb Allergy Rash Uncoded 04/26/17 09:19 Home Meds: Home Meds Furosemide [Lasix] 40 mg PO BID 12/04/13 [History] Multivitamin [One-A-Day Essential] 1 each PO DAILY 12/04/13 [History] Tiotropium [Spiriva Handihaler] 1 cap INH DAILY 12/04/13 [History] atorvaSTATin [Lipitor] 20 mg PO BEDTIME 12/04/13 [History] metFORMIN [Glucophage XR] 2 tab PO BIDM 12/04/13 [History] Tolterodine [Detrol LA 24 Hr] 2 mg PO BID 07/27/14 [History] Albuterol Sulfate [Albuterol Sulfate] 1 ampule IH BID PRN 03/18/15 [History] Albuterol [Proventil HFA] 2 puff IH BID PRN 03/18/15 [History] Montelukast [Singulair] 10 mg PO BEDTIME 03/18/15 [History] Nitroglycerin [Nitrostat] 1 tab BUCCAL ASDIRECTED 03/18/15 [History] Budesonide [Pulmicort] 0.5 mg IH BID 02/05/17 [History] Diclofenac Sodium/Misoprostol [Diclofenac-Misoprost 75-0.2 Tb] 1 each PO BID 01/17 [History] Escitalopram [Lexapro] 20 mg PO DAILY 02/05/17 [History] Formoterol [Perforomist] 20 mcg NEB BIDRT 02/05/17 [History] Ipratropium/Albuterol Sulfate [Iprat-Albut 0.5-3(2.5) mg/3 ml] 3 ml IH TID 02/05 [History] LORazepam [Ativan] 0.5 mg PO BID PRN 02/05/17 [History] Mirabegron [Myrbetriq] 50 mg PO QPM 02/05/17 [History] Prednisone [IJD: Prednisone] 5 - 10 mg PO ASDIRECTED 02/05/17 [History] Aspirin 1 tab PO DAILY 03/15/17 [History] Potassium Chloride 2 tab PO DAILY 03/15/17 [History] Past Medical History HEENT History: Reports: Impaired Vision Other HEENT History: wears glasses Cardiovascular History: Reports: High Cholesterol, Hypertension, [place], Stents Respiratory History: Reports: Asthma, Bronchitis, Recurrent, COPD, SOB, Other ( See Below) Other Respiratory History: emphysema Gastrointestinal History: Reports: None Genitourinary History: Reports: BPH Musculoskeletal History: Reports: Osteoarthritis Neurological History: Reports: CVA Psychiatric History: Reports: Anxiety, Depression Endocrine/Metabolic History: Reports: Diabetes, Type II Hematologic History: Reports: Anemia Immunologic History: Reports: None Oncologic (Cancer) History: Reports: Bladder Dermatologic History: Reports: Other (See Below) Other Dermatologic History: multiple ecchymotic areas - Infectious Disease History Infectious Disease History: Reports: Other (See Below) Other Infectious Disease History: unknown - Past Surgical History HEENT Surgical History: Reports: Cataract Surgery Cardiovascular Surgical History: Reports: Coronary Artery Stent, Valve Replacement GI Surgical History: Reports: Cholecystectomy, Hernia, Abdominal Musculoskeletal Surgical History: Reports: Knee Replacement Social & Family History - Family History Family Medical History: Noncontributory - Tobacco Use Smoking Status *Q: Former Smoker Years of Tobacco use: 50 Used Tobacco, but Quit: Yes Month Tobacco Last Used: april 14 1976 Second Hand Smoke Exposure: No - Caffeine Use Caffeine Use: Reports: Coffee, Soda - Alcohol Use Days Per Week of Alcohol Use: 0 - Recreational Drug Use Recreational Drug Use: No - Living Situation & Occupation Living situation: Reports: , with Spouse Occupation: Retired ED ROS GENERAL - Review of Systems Review Of Systems: ROS reveals no pertinent complaints other than HPI. ED EXAM, GENERAL - Physical Exam Exam: See Below Exam Limited By: No Limitations General Appearance: Alert, WD/WN, Mild Distress, Thin Eye Exam: Bilateral Eye: EOMI, Normal Inspection, PERRL Ears: Normal External Exam, Normal Canal, Hearing Grossly Normal, Normal TMs Nose: Normal Inspection, Normal Mucosa, No Blood Throat/Mouth: Normal Inspection, Normal Lips, Normal Teeth, Normal Gums, Normal Oropharynx, Normal Voice, No Airway Compromise Head: Atraumatic, Normocephalic, Other (sutures on his scalp appear to be healing well with no evidence of infection or further bleeding) Respiratory/Chest: Decreased Breath Sounds (throughout), Other (Atalectic sounds in bases) Cardiovascular: No Edema, No Gallop, No JVD, No Murmur, Irregularly Irregular GI/Abdominal: Normal Bowel Sounds, Soft, Non-Tender, No Organomegaly, No Distention, No Abnormal Bruit, No Mass (Male) Exam: Deferred Rectal (Males) Exam: Deferred Back Exam: Normal Inspection Extremities: Normal Range of Motion, Non-Tender, No Pedal Edema, Normal Capillary Refill, Other (several bandages on his upper extremities due to fall from last week with skin tears) Neurological: Alert, Oriented, CN II-XII Intact, Normal Cognition Psychiatric: Depressed Mood Skin Exam: Warm, Dry, No Rash, Other (bruising apparent on all extremities) Lymphatic: No Adenopathy Course - Vital Signs Last Recorded V/S: Last Vital Signs Temp 35.8 C 04/26/17 09:17 Pulse 86 04/26/17 09:17 Resp 22 H 04/26/17 09:17 BP 145/78 H 04/26/17 09:17 Pulse Ox 100 04/26/17 09:17 - Orders/Labs/Meds Orders: Active Orders 24 hr Category Date Time Status EKG Documentation Completion [RC] URGENT Care 04/26/17 09:14 Active CULTURE BLOOD [BC] Stat Lab 04/26/17 09:25 Received CULTURE BLOOD [BC] Stat Lab 04/26/17 09:52 Received UA W/MICROSCOPIC [URIN] Stat Lab 04/26/17 09:14 Uncollected Blood Culture x2 Reflex Set [OM.PC] Stat Oth 04/26/17 09:14 Ordered Labs: Laboratory Tests 04/26/17 04/26/17 04/26/17 Range/Units 09:25 09:25 09:25 WBC 6.8 (5.0-10.0) 10^3/uL RBC 3.90 L (4.6-6.2) 10^6/uL Hgb 10.8 L (14.0-18.0) g/dL Hct 35.2 L (40.0-54.0) % MCV 90.3 (80-100) fL MCH 27.7 (27.0-34.0) pg MCHC 30.7 L (33.0-35.0) g/dL Plt Count 223 (150-450) 10^3/uL Neut % (Auto) 76.6 H (42.2-75.2) % Lymph % (Auto) 12.6 L (20.5-50.1) % Divide % (Auto) 10.0 H (2-8) % Eos % (Auto) 0.7 L (1.0-3.0) % Baso % (Auto) 0.1 (0.0-1.0) % Sodium 139 (135-145) mmol/L Potassium 3.9 (3.6-5.0) mmol/L Chloride 98 L (101-111) mmol/L Carbon Dioxide 27.0 (21.0-31.0) mmol/L Anion Gap 17.9 BUN 21 H (7-18) mg/dL Creatinine 1.2 (0.6-1.3) mg/dL Est Cr Clr Drug Dosing TNP Estimated GFR (MDRD) 59 BUN/Creatinine Ratio 17.50 Glucose 165 H (74-105) mg/dL Lactic Acid 1.8 (0.5-2.2) mmol/L Calcium 9.4 (8.4-10.2) mg/dl Magnesium 1.4 L (1.8-2.5) mg/dL Total Bilirubin 0.7 (0.2-1.0) mg/dL AST 24 (10-42) IU/L ALT 22 (10-60) IU/L Alkaline Phosphatase 94 (42-121) IU/L Troponin I 0.07 H* (0.00-0.02) ng/ml B-Natriuretic Peptide 339 H (0-100) pg/ml Total Protein 6.5 L (6.7-8.2) g/dl Albumin 3.2 (3.2-5.5) g/dl Globulin 3.3 Albumin/Globulin Ratio 0.97 Departure - Departure Time of Disposition: 11:10 Disposition: Admitted As Inpatient 64 Condition: Fair Clinical Impression: Weakness, Elevated troponin I level - Discharge Information Care Plan Goals: Discussed the history, examination, lab, EKG and x-ray results with Dr. Huynh. Dr. Huynh accepted the patient for continued evaluation and management as an inpatient at [facility]. - My Orders Last 24 Hours: My Active Orders 04/26/17 09:14 EKG Documentation Completion [RC] URGENT UA W/MICROSCOPIC [URIN] Stat Blood Culture x2 Reflex Set [OM.PC] Stat 04/26/17 09:25 CULTURE BLOOD [BC] Stat 04/26/17 09:52 CULTURE BLOOD [BC] Stat - Assessment/Plan Last 24 Hours: My Active Orders 04/26/17 09:14 EKG Documentation Completion [RC] URGENT UA W/MICROSCOPIC [URIN] Stat Blood Culture x2 Reflex Set [OM.PC] Stat 04/26/17 09:25 CULTURE BLOOD [BC] Stat 04/26/17 09:52 CULTURE BLOOD [BC] Stat
[2017-04-26 09:56] LABS: CHLORIDE,CL 98 mmol/L (101-111); SODIUM,NA 139 mmol/L (135-145)
[2017-04-26] MEDS ORDERED: LORazepam 0.5 MG Tab PO PRN (12:28)
[2017-04-26] MEDS ORDERED: Non-Formulary Medication 1 Each (Mirabegron [Myrbetriq] 50 MG) PO SCH (12:30)
[2017-04-26] MEDS ORDERED: Ondansetron 4 MG Tab.DIS PO PRN (12:36)
[2017-04-26] MEDS ORDERED: Zolpidem 5 MG Tab PO PRN (12:36)
[2017-04-26] MEDS ORDERED: Acetaminophen 325 MG Tab PO PRN (12:36)
[2017-04-26] MEDS ORDERED: Sodium Chloride 0.9% 10 ML Syringe FLUSH PRN (12:36)
[2017-04-26] MEDS ORDERED: Docusate Sodium 100 MG Cap PO PRN (12:36)
--- NOTE | 2017-04-26 12:45 | PCM.HP ---
H&P History of Present Illness - General Date of Service: 04/26/17 Admit Problem/Dx: Admission Diagnosis/Problem Admission Diagnosis/Problem Elevated troponin I level Source of Information: Patient - History of Present Illness Initial Comments - Free Text/Narative: The patient is a 76-year-old gentleman with a history of COPD, diabetes, coronary artery disease, hypertension. The patient had multiple ER visits and admissions for weakness. He has stayed in long-term but always returned back home. On the day of admission the EMS was called for weakness. He denies a specific complaint other than he was unable to get up from chair. He denies chest pain, has chronic shortness of breath. He denies cough, no fever. No urinary symptoms. - Related Data Allergies/Adverse Reactions: Allergies Allergy/AdvReac Type Severity Reaction Status Date / Time cefotaxime Allergy Rash Verified 04/26/17 09:19 clonazepam Allergy Hallucinati Verified 04/26/17 09:19 ons erythromycin base Allergy Cannot Verified 04/26/17 09:19 Remember erythromycin lactobionate Allergy Rash Verified 04/26/17 09:19 [From Erythrocin] roflumilast Allergy Rash Verified 04/26/17 09:19 sulfamethoxazole Allergy Itching Verified 04/26/17 09:19 [From Bactrim] trimethoprim [From Bactrim] Allergy Itching Verified 04/26/17 09:19 lilac pink herb Allergy Rash Uncoded 04/26/17 09:19 Home Medications: Home Meds Furosemide [Lasix] 40 mg PO BID 12/04/13 [History] Multivitamin [One-A-Day Essential] 1 each PO DAILY 12/04/13 [History] Tiotropium [Spiriva Handihaler] 1 cap INH DAILY 12/04/13 [History] atorvaSTATin [Lipitor] 20 mg PO BEDTIME 12/04/13 [History] metFORMIN [Glucophage XR] 2 tab PO BIDM 12/04/13 [History] Tolterodine [Detrol LA 24 Hr] 2 mg PO BID 07/27/14 [History] Albuterol Sulfate [Albuterol Sulfate] 1 ampule IH BID PRN 03/18/15 [History] Albuterol [Proventil HFA] 2 puff IH BID PRN 03/18/15 [History] Montelukast [Singulair] 10 mg PO BEDTIME 03/18/15 [History] Nitroglycerin [Nitrostat] 1 tab BUCCAL ASDIRECTED 03/18/15 [History] Budesonide [Pulmicort] 0.5 mg IH BID 02/05/17 [History] Diclofenac Sodium/Misoprostol [Diclofenac-Misoprost 75-0.2 Tb] 1 each PO BID 01/17 [History] Escitalopram [Lexapro] 20 mg PO DAILY 02/05/17 [History] Formoterol [Perforomist] 20 mcg NEB BIDRT 02/05/17 [History] Ipratropium/Albuterol Sulfate [Iprat-Albut 0.5-3(2.5) mg/3 ml] 3 ml IH TID 02/05 [History] LORazepam [Ativan] 0.5 mg PO BID PRN 02/05/17 [History] Mirabegron [Myrbetriq] 50 mg PO QPM 02/05/17 [History] Prednisone [IJD: Prednisone] 5 - 10 mg PO ASDIRECTED 02/05/17 [History] Aspirin 1 tab PO DAILY 03/15/17 [History] Potassium Chloride 2 tab PO DAILY 03/15/17 [History] Past Medical History HEENT History: Reports: Impaired Vision Other HEENT History: wears glasses Cardiovascular History: Reports: High Cholesterol, Hypertension, CO, Stents Respiratory History: Reports: Asthma, Bronchitis, Recurrent, COPD, SOB, Other ( See Below) Other Respiratory History: emphysema Gastrointestinal History: Reports: None Genitourinary History: Reports: BPH Musculoskeletal History: Reports: Osteoarthritis Neurological History: Reports: CVA Psychiatric History: Reports: Anxiety, Depression Endocrine/Metabolic History: Reports: Diabetes, Type II Hematologic History: Reports: Anemia Immunologic History: Reports: None Oncologic (Cancer) History: Reports: Bladder Dermatologic History: Reports: Other (See Below) Other Dermatologic History: multiple ecchymotic areas - Infectious Disease History Infectious Disease History: Reports: Other (See Below) Other Infectious Disease History: unknown - Past Surgical History HEENT Surgical History: Reports: Cataract Surgery Cardiovascular Surgical History: Reports: Coronary Artery Stent, Valve Replacement GI Surgical History: Reports: Cholecystectomy, Hernia, Abdominal Musculoskeletal Surgical History: Reports: Knee Replacement Social & Family History - Family History Family Medical History: Noncontributory - Tobacco Use Smoking Status *Q: Former Smoker Years of Tobacco use: 50 Packs/Tins Daily: 1 Used Tobacco, but Quit: Yes Month Tobacco Last Used: april 14 1976 Second Hand Smoke Exposure: No - Caffeine Use Caffeine Use: Reports: Coffee, Soda - Alcohol Use Days Per Week of Alcohol Use: 0 - Recreational Drug Use Recreational Drug Use: No - Living Situation & Occupation Living situation: Reports: , with Spouse Occupation: Retired H&P Review of Systems - Review of Systems: Review Of Systems: See Below General: Denies: Fever Pulmonary: Reports: Shortness of Breath (chronic) Cardiovascular: Denies: Chest Pain Gastrointestinal: Denies: Abdominal Pain Musculoskeletal: Reports: Other (Generalized weakness) Psychiatric: Denies: Confusion Exam - Exam Exam: See Below - Vital Signs Vital Signs: Last Vital Signs Temp 36.8 C 04/26/17 12:05 Pulse 81 04/26/17 12:05 Resp 22 H 04/26/17 12:05 BP 154/71 H 04/26/17 12:05 Pulse Ox 100 04/26/17 12:36 Weight: 69.309 kg - Exam General: Alert Neck: Supple Lungs: Normal Respiratory Effort, Decreased Breath Sounds. No: Rhonchi, Wheezing Cardiovascular: Regular Rate, Regular Rhythm GI/Abdominal Exam: Normal Bowel Sounds, Soft, Non-Tender Extremities: No Pedal Edema Skin: Warm, Dry Neurological: Other (Moving all extremities, able to sit up in bed, ) Neuro Extensive - Mental Status: Alert, Oriented x3 Psychiatric: Alert, Normal Affect, Normal Mood - Patient Data Result Diagrams: 04/26/17 09:25 04/26/17 09:25 Imaging Impressions Last 24 hrs: Chest x-ray per my reading shows no significant CHF, no pneumonia. EKG INTERPRETATION Rhythm: NSR *Q Meaningful Use (ADM) - VTE *Q VTE Criteria *Q: - Stroke *Q Stroke Criteria *Q: - AMI *Q AMI Criteria *Q: - Problem List (1) Elevated troponin I level SNOMED Code(s): 947156929 ICD Code: R74.8 - ABNORMAL LEVELS OF OTHER SERUM ENZYMES Status: Acute Current Visit: Yes (2) Weakness generalized SNOMED Code(s): 36768935 ICD Code: R53.1 - WEAKNESS Status: Acute Current Visit: Yes (3) COPD without exacerbation SNOMED Code(s): 80170085 ICD Code: J44.9 - CHRONIC OBSTRUCTIVE PULMONARY DISEASE, UNSPECIFIED Status : Acute Current Visit: No Problem List Initiated/Reviewed/Updated: Yes Orders Last 24hrs: Active Orders 24 hr Category Date Time Status Patient Status [ADT] Routine ADT 04/26/17 12:36 Ordered Antiembolic Devices [RC] PER UNIT ROUTINE Care 04/26/17 12:38 Ordered Glucose [Blood Glucose Check, Bedside] [RC] QIDACANDBED Care 04/26/17 12:35 Ordered Oxygen Therapy [RC] PRN Care 04/26/17 12:36 Ordered Peripheral IV Care [RC] . DIRECTED Care 04/26/17 12:38 Ordered Telemetry Monitoring [Cardiac Monitoring] [RC] . Care 04/26/17 12:08 Active DIRECTED Up With Assistance [RC] ASDIRECTED Care 04/26/17 12:36 Ordered VTE/DVT Education [RC] PER UNIT ROUTINE Care 04/26/17 12:36 Ordered Vital Signs [RC] Q4H Care 04/26/17 12:36 Ordered OT Evaluation and Treatment [CONS] Routine Cons 04/26/17 12:36 Ordered PT Evaluation and Treatment [CONS] Routine Cons 04/26/17 12:36 Ordered Consistent Carbohydrate Diet [DIET] Diet 04/26/17 Dinner Ordered BASIC METABOLIC PANEL,BMP [CHEM] AM Lab 04/27/17 05:15 Ordered CBC WITH AUTO DIFF [HEME] AM Lab 04/27/17 05:15 Ordered TROPONIN I [CHEM] AM Lab 04/27/17 05:11 Ordered TROPONIN I [CHEM] Routine Lab 04/26/17 18:00 Ordered Acetaminophen [Tylenol] Med 04/26/17 12:36 Ordered 650 mg PO Q4H PRN Albuterol/Ipratropium [DuoNeb 3.0-0.5 MG/3 ML] Med 04/26/17 12:28 Ordered 3 ml INH TID PRN Aspirin Med 04/27/17 09:00 Ordered 1 tab PO DAILY Budesonide [Pulmicort] Med 04/26/17 21:00 Ordered 0.5 mg INH BID Docusate Sodium [Colace] Med 04/26/17 12:36 Ordered 100 mg PO BID PRN Escitalopram [Lexapro] Med 04/27/17 09:00 Ordered 20 mg PO DAILY Formoterol [Perforomist] Med 04/26/17 18:00 Ordered 20 mcg NEB BIDRT Furosemide [Lasix] Med 04/26/17 21:00 Ordered 40 mg PO BID Heparin Sodium Med 04/26/17 14:00 Ordered 5,000 units SUBCUT Q8HR Insulin Aspart [NovoLOG] Med 04/26/17 17:00 Ordered See Protocol SUBCUT TIDAC LORazepam [Ativan] Med 04/26/17 12:28 Ordered 0.5 mg PO BID PRN Mirabegron [Myrbetriq] Med 04/26/17 12:30 Ordered 50 mg PO QPM Montelukast [Singulair] Med 04/26/17 21:00 Ordered 10 mg PO BEDTIME Multivitamin [One-A-Day Essential] Med 04/27/17 09:00 Ordered 1 each PO DAILY Ondansetron [Zofran ODT] Med 04/26/17 12:36 Ordered 4 mg PO Q6H PRN Potassium Chloride [Potassium Chloride] Med 04/27/17 09:00 Ordered 2 tab PO DAILY Sodium Chloride 0.9% [Saline Flush] Med 04/26/17 12:36 Ordered 10 ml FLUSH ASDIRECTED PRN Tiotropium [Spiriva HandiHaler] Med 04/27/17 09:00 Ordered 1 cap INH DAILY Tolterodine [Detrol LA 24 Hr] Med 04/26/17 21:00 Ordered 2 mg PO BID Zolpidem [Ambien] Med 04/26/17 12:36 Ordered 5 mg PO BEDTIME PRN atorvaSTATin [Lipitor] Med 04/26/17 21:00 Ordered 20 mg PO BEDTIME Antiembolic Hose [OM.PC] Per Unit Routine Oth 04/26/17 12:37 Ordered Peripheral IV Insertion Adult [OM.PC] Routine Oth 04/26/17 12:36 Ordered Saline Lock Insert [OM.PC] Routine Oth 04/26/17 12:36 Ordered Resuscitation Status Routine Resus Stat 04/26/17 12:36 Ordered Medication Orders Acetaminophen (Tylenol) 650 mg PO Q4H PRN PRN Reason: Pain (Mild 1-3)/fever Albuterol/Ipratropium (Duoneb 3.0-0.5 Mg/3 Ml) 3 ml INH TID PRN PRN Reason: Shortness of Breath Aspirin (Aspirin) mg PO DAILY [facility] Atorvastatin Calcium (Lipitor) 20 mg PO BEDTIME [facility] Budesonide (Pulmicort) 0.5 mg INH BID [facility] Docusate Sodium (Colace) 100 mg PO BID PRN PRN Reason: Constipation Furosemide (Lasix) 40 mg PO BID [facility] Heparin Sodium (Porcine) (Heparin Sodium) 5,000 units SUBCUT Q8HR [facility] Insulin Aspart (Novolog) 0 unit SUBCUT TIDAC [facility] PRN Reason: Protocol Lorazepam (Ativan) 0.5 mg PO BID PRN PRN Reason: Anxiety Montelukast Sodium (Singulair) 10 mg PO BEDTIME [facility] Non-Formulary Medication (Escitalopram [Lexapro]) 20 mg PO DAILY [facility] Non-Formulary Medication (Formoterol [Perforomist]) 20 mcg NEB BIDRT [facility] Non-Formulary Medication (Mirabegron [Myrbetriq]) 50 mg PO QPM [facility] Non-Formulary Medication (Multivitamin [One-A-Day Essential]) 1 each PO DAILY [facility] Non-Formulary Medication (Potassium Chloride [Potassium Chloride]) 2 tab PO DAILY [facility] Ondansetron HCl (Zofran Odt) 4 mg PO Q6H PRN PRN Reason: nausea, able to take PO Sodium Chloride (Saline Flush) 10 ml FLUSH ASDIRECTED PRN PRN Reason: Keep Vein Open Tiotropium [place]ctor (Spiriva Handihaler) mcg INH DAILY [facility] Tolterodine Tartrate (Detrol La 24 Hr) 2 mg PO BID [facility] Zolpidem Tartrate (Ambien) 5 mg PO BEDTIME PRN PRN Reason: Sleep Assessment/Plan Comment:: The patient is a 76-year-old gentleman with a history of COPD, diabetes, coronary artery disease, hypertension. The patient had multiple ER visits and admissions for weakness. He has stayed in long-term but always returned back home. On the day of admission the EMS was called for weakness. He denies a specific complaint other than he was unable to get up from chair. He denies chest pain, has chronic shortness of breath. He denies cough, no fever. No urinary symptoms. Mildly elevated troponin with history of coronary artery disease With no chest pain, chronic shortness of breath Will repeat the troponin Treat with aspirin, statin Diabetes For now hold metformin Follow blood sugars, use supplemental insulin scale as needed Diabetic diet COPD No apparent acute exacerbation Treat with Singulair, formoterol, Pulmicort, spiriva Use DuoNeb as needed for shortness of breath Generalized weakness Will ask physical and occupational therapy evaluation and treatment Consult social work for help with discharge planning Discussed CODE STATUS with the patient He wish to be DNR
[2017-04-26] MEDS: Albuterol/Ipratropium 3.0-0.5 MG/3 ML Neb Soln INH PRN (13:19)
[2017-04-26] MEDS: Heparin Sodium 5,000 Units/ML Vial SUBCUT SCH ×2 (14:04→21:42)
[2017-04-26] MEDS: Insulin Aspart 100 Units/ML 3 ML Pen SUBCUT SCH (17:06)
[2017-04-26] MEDS: Budesonide 0.5 MG/2 ML Neb Susp INH SCH (17:06)
[2017-04-26] MEDS ORDERED: Non-Formulary Medication 1 Each (Formoterol [Perforomist] 20 MCG) NEB SCH (18:00)
[2017-04-26] MEDS: Furosemide 40 MG Tab PO SCH (20:48)
[2017-04-26] MEDS: Tolterodine 2 MG Cap.ER PO SCH (20:48)
[2017-04-26] MEDS ORDERED: Montelukast 10 MG Tab PO SCH (21:00)
[2017-04-26] MEDS ORDERED: atorvaSTATin 20 MG Tab PO SCH (21:00)
[2017-04-27] MEDS: Heparin Sodium 5,000 Units/ML Vial SUBCUT SCH ×2 (06:06→14:03)
[2017-04-27 06:50] LABS: CHLORIDE,CL 98 mmol/L (101-111); SODIUM,NA 137 mmol/L (135-145)
[2017-04-27] MEDS: Albuterol/Ipratropium 3.0-0.5 MG/3 ML Neb Soln INH PRN (07:12)
[2017-04-27] MEDS: Budesonide 0.5 MG/2 ML Neb Susp INH SCH (07:12)
[2017-04-27] MEDS ORDERED: Potassium Chloride 10 MEQ Tab.ER PO SCH (08:00)
[2017-04-27] MEDS ORDERED: Multivitamins,Therapeutic Tab PO SCH (09:00)
[2017-04-27] MEDS ORDERED: Aspirin 81 MG Tab.Chew PO SCH (09:00)
[2017-04-27] MEDS ORDERED: Escitalopram 10 MG Tab PO SCH (09:00)
[2017-04-27] MEDS ORDERED: Tiotropium Inhaler 18 MCG Inhalation Powder Cap Kit of 5 INH SCH (09:00)
[2017-04-27] MEDS: Furosemide 40 MG Tab PO SCH ×2 (09:13→14:02)
[2017-04-27] MEDS: Tolterodine 2 MG Cap.ER PO SCH (09:14)
[2017-04-27] MEDS: Insulin Aspart 100 Units/ML 3 ML Pen SUBCUT SCH ×2 (09:16→12:45)
[2017-04-27] MEDS ORDERED: Ciprofloxacin 500 MG Tab PO SCH (10:00)
--- NOTE | 2017-04-27 10:21 | PCM.DCSUM1 ---
Discharge Summary - Hospital Course Free Text/Narrative:: The patient presented with weakness. He was noted to have minimally elevated troponin without chest pain. He has baseline shortness of breath with no significant worsening. Troponin level did not change, never no new ischemic EKG changes. The patient was noted to have urinary tract infection. Started treatment with ciprofloxacin. The patient's strength has improved and will be discharged home with home care. - Discharge Data Discharge Date: 04/27/17 Discharge Disposition: Home, Self-Care 01 Condition: Good - Discharge Diagnosis/Problem(s) (1) Elevated troponin I level SNOMED Code(s): 899089409 ICD Code: R74.8 - ABNORMAL LEVELS OF OTHER SERUM ENZYMES Status: Acute Current Visit: Yes (2) Weakness generalized SNOMED Code(s): 80228255 ICD Code: R53.1 - WEAKNESS Status: Acute Current Visit: Yes (3) COPD without exacerbation SNOMED Code(s): 37176010 ICD Code: J44.9 - CHRONIC OBSTRUCTIVE PULMONARY DISEASE, UNSPECIFIED Status : Acute Current Visit: No (4) UTI (urinary tract infection) SNOMED Code(s): 92184747 ICD Code: N39.0 - URINARY TRACT INFECTION, SITE NOT SPECIFIED Status: Acute Current Visit: Yes Qualifiers: Urinary tract infection type: acute cystitis Hematuria presence: without hematuria Qualified Code(s): N30.00 - Acute cystitis without hematuria - Patient Instructions Diet: Heart Healthy Diet Activity: As Tolerated - Discharge Plan Prescriptions/Med Rec: Ciprofloxacin [Ciprofloxacin HCl] 500 mg PO BID #10 tablet Home Medications: Home Meds Albuterol Sulfate [Proair Hfa] 1 puff INH Q4HR PRN 04/26/17 [History] Albuterol [IJD: Albuterol] 3 ml IN Q4HR PRN 04/26/17 [History] Albuterol/Ipratropium [DuoNeb 3.0-0.5 MG/3 ML] 3 ml INH TID 04/26/17 [History] Aspirin [Halfprin] 1 tab PO DAILY 04/26/17 [History] Budesonide [Pulmicort] 1 inh INH BID 04/26/17 [History] Diclofenac Sodium/Misoprostol [Diclofenac-Misoprost 75-0.2 Tb] 1 tab PO BID [History] Escitalopram [Lexapro] 20 mg PO DAILY 04/26/17 [History] Ferrous Sulfate 325 mg PO DAILY 04/26/17 [History] Formoterol Fumarate [Perforomist] 2 ml INH BID 04/26/17 [History] Furosemide [Lasix] 40 mg PO BIDMEALS 04/26/17 [History] Hydrocodone/Acetaminophen [[place] 5-325] 1 tab PO Q6HR PRN 04/26/17 [History] LORazepam [Ativan] 0.5 mg PO BID PRN 04/26/17 [History] Mirabegron [Myrbetriq] 50 mg PO DAILY 04/26/17 [History] Montelukast Sodium [Singulair] 10 mg PO BEDTIME 04/26/17 [History] Multivitamin [Multivitamins] 1 tab PO DAILY 04/26/17 [History] Nitroglycerin [Nitrostat] 0.4 mg PO .Q5MIN 04/26/17 [History] Potassium Chloride 20 meq PO DAILY 04/26/17 [History] Tiotropium [Spiriva HandiHaler] 1 puff IN DAILY 04/26/17 [History] Tolterodine [Detrol] 2 mg PO BID 04/26/17 [History] atorvaSTATin [Lipitor] 20 mg PO DAILY 04/26/17 [History] metFORMIN HCl [Metformin HCl] 500 mg PO BIDMEALS 04/26/17 [History] Ciprofloxacin [Ciprofloxacin HCl] 500 mg PO BID #10 tablet 04/27/17 [Rx] Prednisone [IJD: Prednisone] 5 mg PO DAILY #0 04/27/17 [Rx] Referrals: PCP,None [Primary Care Provider] - (in 2-3 days) - Discharge Summary/Plan Comment DC Time >30 min.: No - General Info Date of Service: 04/27/17 Subjective Update: Feeling well, appears stronger. No chest pain, baseline chronic shortness of breath. Required one-person assist to get out of bed and ambulate with a walker. - Review of Systems General: Reports: Weakness. Denies: Fever Pulmonary: Reports: Shortness of Breath (Chronic at baseline) Cardiovascular: Denies: Chest Pain Gastrointestinal: Denies: Abdominal Pain Neurological: Denies: Confusion - Patient Data Vitals - Most Recent: Last Vital Signs Temp 36.6 C 04/27/17 07:00 Pulse 62 04/27/17 07:13 Resp 20 08/25/17 07:00 BP 142/67 H 04/27/17 07:00 Pulse Ox 100 04/27/17 07:00 Weight - Most Recent: 69.309 kg I&O - Last 24 hours: Intake & Output 04/26/17 04/27/17 04/27/17 22:59 06:59 14:59 Output Total 100 Balance -100 Lab Results - Last 24 hrs: Laboratory Results - last 24 hr 04/26/17 04/26/17 04/26/17 Range/Units 13:10 16:46 18:00 WBC Sodium (135-145) mmol/L Potassium (3.6-5.0) mmol/L Chloride (101-111) mmol/L Carbon Dioxide (21.0-31.0) mmol/L Anion Gap BUN (7-18) mg/dL Creatinine (0.6-1.3) mg/dL Est Cr Clr Drug Dosing mL/min Estimated GFR (MDRD) Glucose (74-105) mg/dL POC Glucose 171 H (83-110) mg/dl Calcium (8.4-10.2) mg/dl Troponin I 0.08 H* (0.00-0.02) ng/ml Urine Color Yellow (YELLOW) Urine Appearance Turbid (CLEAR) Urine pH 6.5 (5.0-9.0) Ur Specific Moose 1.015 (1.005-1.030) Urine Protein 100 H (NEGATIVE) Urine Glucose (UA) Negative (NEGATIVE) Urine Ketones Negative (NEGATIVE) Urine Occult Blood Moderate H (NEGATIVE) Urine Nitrite Positive H (NEGATIVE) Urine Bilirubin Negative (NEGATIVE) Urine Urobilinogen 0.2 (0.2-1.0) mg/dL Ur Leukocyte Esterase Moderate H (NEGATIVE) Urine RBC 5-10 H /HPF Urine WBC Packed H (0-5/HPF) /HPF Ur Epithelial Cells Rare /HPF Urine Bacteria Many H (0-FEW/HPF) /HPF Urine Mucus Not seen /LPF 04/26/17 04/27/17 04/27/17 Range/Units 20:56 05:35 05:35 WBC 6.3 Sodium 137 (135-145) mmol/L Potassium 3.5 L (3.6-5.0) mmol/L Chloride 98 L (101-111) mmol/L Carbon Dioxide 29.0 (21.0-31.0) mmol/L Anion Gap 13.5 BUN 17 (7-18) mg/dL Creatinine 1.0 (0.6-1.3) mg/dL Est Cr Clr Drug Dosing 56.78 mL/min Estimated GFR (MDRD) > 60 Glucose 153 H (74-105) mg/dL POC Glucose 169 H (83-110) mg/dl Calcium 9.1 (8.4-10.2) mg/dl Troponin I 0.08 H* (0.00-0.02) ng/ml Urine Color (YELLOW) Urine Appearance (CLEAR) Urine pH (5.0-9.0) Ur Specific Moose (1.005-1.030) Urine Protein (NEGATIVE) Urine Glucose (UA) (NEGATIVE) Urine Ketones (NEGATIVE) Urine Occult Blood (NEGATIVE) Urine Nitrite (NEGATIVE) Urine Bilirubin (NEGATIVE) Urine Urobilinogen (0.2-1.0) mg/dL Ur Leukocyte Esterase (NEGATIVE) Urine RBC /HPF Urine WBC (0-5/HPF) /HPF Ur Epithelial Cells /HPF Urine Bacteria (0-FEW/HPF) /HPF Urine Mucus /LPF 04/27/17 Range/Units 07:44 WBC Sodium (135-145) mmol/L Potassium (3.6-5.0) mmol/L Chloride (101-111) mmol/L Carbon Dioxide (21.0-31.0) mmol/L Anion Gap BUN (7-18) mg/dL Creatinine (0.6-1.3) mg/dL Est Cr Clr Drug Dosing mL/min Estimated GFR (MDRD) Glucose (74-105) mg/dL POC Glucose 151 H (83-110) mg/dl Calcium (8.4-10.2) mg/dl Troponin I (0.00-0.02) ng/ml Urine Color (YELLOW) Urine Appearance (CLEAR) Urine pH (5.0-9.0) Ur Specific Moose (1.005-1.030) Urine Protein (NEGATIVE) Urine Glucose (UA) (NEGATIVE) Urine Ketones (NEGATIVE) Urine Occult Blood (NEGATIVE) Urine Nitrite (NEGATIVE) Urine Bilirubin (NEGATIVE) Urine Urobilinogen (0.2-1.0) mg/dL Ur Leukocyte Esterase (NEGATIVE) Urine RBC /HPF Urine WBC (0-5/HPF) /HPF Ur Epithelial Cells /HPF Urine Bacteria (0-FEW/HPF) /HPF Urine Mucus /LPF Med Orders - Current: Current Medications Acetaminophen (Tylenol) 650 mg PO Q4H PRN PRN Reason: Pain (Mild 1-3)/fever Last Admin: 04/27/17 01:31 Dose: 650 mg Albuterol/Ipratropium (Duoneb 3.0-0.5 Mg/3 Ml) 3 ml INH TID PRN PRN Reason: Shortness of Breath Last Admin: 04/27/17 07:12 Dose: 3 ml Aspirin (Aspirin) 81 mg PO DAILY [facility] Last Admin: 04/27/17 09:14 Dose: 81 mg Atorvastatin Calcium (Lipitor) 20 mg PO BEDTIME [facility] Last Admin: 04/26/17 20:49 Dose: 20 mg Budesonide (Pulmicort) 0.5 mg INH BIDRT [facility] Last Admin: 04/27/17 07:12 Dose: 0.5 mg Ciprofloxacin (Ciprofloxacin Hcl) 500 mg PO BID [facility] Docusate Sodium (Colace) 100 mg PO BID PRN PRN Reason: Constipation Escitalopram Oxalate (Lexapro) 20 mg PO DAILY [facility] Last Admin: 04/27/17 09:13 Dose: 20 mg Furosemide (Lasix) 40 mg PO BIDDIURETIC [facility] Last Admin: 04/27/17 09:13 Dose: 40 mg Heparin Sodium (Porcine) (Heparin Sodium) 5,000 units SUBCUT Q8HR [facility] Last Admin: 04/27/17 06:06 Dose: 5,000 units Insulin Aspart (Novolog) 0 unit SUBCUT TIDAC [facility] PRN Reason: Protocol Last Admin: 04/27/17 09:16 Dose: 2 units Lorazepam (Ativan) 0.5 mg PO BID PRN PRN Reason: Anxiety Last Admin: 04/26/17 20:49 Dose: 0.5 mg Montelukast Sodium (Singulair) 10 mg PO BEDTIME [facility] Last Admin: 04/26/17 20:49 Dose: 10 mg Multivitamins (Thera) 1 each PO DAILY [facility] Last Admin: 04/27/17 09:14 Dose: 1 each Non-Formulary Medication (Formoterol [Perforomist]) 20 mcg NEB BIDRT [facility] Non-Formulary Medication (Mirabegron [Myrbetriq]) 50 mg PO QPM [facility] Ondansetron HCl (Zofran Odt) 4 mg PO Q6H PRN PRN Reason: nausea, able to take PO Potassium Chloride (Klor-Con 10) 20 meq PO DAILY@0800 [facility] Last Admin: 04/27/17 09:12 Dose: 20 meq Sodium Chloride (Saline Flush) 10 ml FLUSH ASDIRECTED PRN PRN Reason: Keep Vein Open Tiotropium [place] (Spiriva Handihaler) 18 mcg INH DAILY [facility] Last Admin: 04/27/17 09:23 Dose: 18 mcg Tolterodine Tartrate (Detrol La 24 Hr) 2 mg PO BID [facility] Last Admin: 04/27/17 09:14 Dose: 2 mg Zolpidem Tartrate (Ambien) 5 mg PO BEDTIME PRN PRN Reason: Sleep - Exam General: Reports: Alert, Oriented Lungs: Reports: Clear to Auscultation, Normal Respiratory Effort Cardiovascular: Reports: Regular Rate, Regular Rhythm GI/Abdominal Exam: Normal Bowel Sounds, Soft Extremities: No Pedal Edema, Other (Bruises) Skin: Reports: Warm Neurological: Reports: No New Focal Deficit Psy/Mental Status: Reports: Alert, Normal Affect, Normal Mood *Q Meaningful Use (DIS) - VTE *Q VTE Criteria *Q: - Stroke *Q Stroke Criteria *Q: - AMI *Q AMI Criteria *Q:
[2017-04-27] MEDS ORDERED: Potassium Chloride 10 MEQ Tab.ER PO ONE (10:22)
--- NOTE | 2017-04-27 10:52 | EKG ---
04/26/2017- ARGENT[place] BOYCE - EKG per my reading shows sinus rhythm with a rate of 81, IA interval 248, first- degree AV block. [facility] /[id number]
[2017-04-27 11:00] VITALS: BP 132/57
== END 2017-04-27 13:45 | disposition home or self-care (01) ==
LOC: DL.ED 09:07 → UNDOADMOB 11:18 → DL.MS 11:18
PROVIDERS: ADMIT Internal Medicine; ATTEND Internal Medicine
DX: R74.8 Abnormal levels of other serum enzymes (principal); R53.1 Weakness; J44.9 Chronic obstructive pulmonary disease, unspecified; N30.00 Acute cystitis without hematuria; I10 Essential (primary) hypertension; E78.00 Pure hypercholesterolemia, unspecified; J45.909 Unspecified asthma, uncomplicated; N40.0 Benign prostatic hyperplasia without lower urinary tract symptoms; E11.9 Type 2 diabetes mellitus without complications; F41.9 Anxiety disorder, unspecified; F32.9 Major depressive disorder, single episode, unspecified; Z79.82 Long term (current) use of aspirin; Z79.84 Long term (current) use of oral hypoglycemic drugs; Z79.2 Long term (current) use of antibiotics; Z79.899 Other long term (current) drug therapy; Z88.1 Allergy status to other antibiotic agents; Z88.8 Allergy status to other drugs, medicaments and biological substances; Z88.2 Allergy status to sulfonamides; Z91.09 Other allergy status, other than to drugs and biological substances; Z95.5 Presence of coronary angioplasty implant and graft; Z90.49 Acquired absence of other specified parts of digestive tract; Z95.2 Presence of prosthetic heart valve; Z96.659 Presence of unspecified artificial knee joint; Z87.891 Personal history of nicotine dependence
CPT/HCPCS: 36415; 71020; 80048; 80053; 81001; 82962; 83605; 83735; 83880; 84484; 85025; 87040; 93005; 93010; 94640; 97162; 97166; 99285; A9270; J1644; J1815; 96372; 99217; 99284; G0378

== ENCOUNTER 2017-05-18 13:51 | Emergency (ER) | payer MEDICARE, OTHER ==
[2017-05-18] MEDS ORDERED: Sodium Chloride 0.9% 1,000 ML IV SCH (14:15)
--- NOTE | 2017-05-18 14:19 | EDM.PDOC ---
ED HPI GENERAL MEDICAL PROBLEM - General Chief Complaint: General Stated Complaint: FLUID IN CHEST Time Seen by Provider: 05/18/17 14:05 Source of Information: Reports: Patient, Family History Limitations: Reports: No Limitations - History of Present Illness INITIAL COMMENTS - FREE TEXT/NARRATIVE: 76 yo white male c/o chest congestion and SOB w/ poor appetite and decrease oral intake. Pt. w/ PMHx. 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 Onset: Today Onset Date: 05/18/17 Onset Time: 08:00 Duration: Hour(s): Location: Reports: Chest, Generalized Severity: Mild Improves with: Reports: None Worsens with: Reports: None Associated Symptoms: Reports: Shortness of Breath - Related Data Allergies Allergy/AdvReac Type Severity Reaction Status Date / Time cefotaxime Allergy Rash Verified 04/26/17 13:20 clonazepam Allergy Hallucinati Verified 04/26/17 13:20 ons erythromycin base Allergy Cannot Verified 04/26/17 13:20 Remember erythromycin lactobionate Allergy Rash Verified 04/26/17 13:20 [From Erythrocin] roflumilast Allergy Rash Verified 04/26/17 13:20 sulfamethoxazole Allergy Itching Verified 04/26/17 13:20 [From Bactrim] trimethoprim [From Bactrim] Allergy Itching Verified 04/26/17 13:20 lilac pink herb Allergy Rash Uncoded 04/26/17 09:19 Home Meds: Home Meds Albuterol Sulfate [Proair Hfa] 1 puff INH Q4HR PRN 04/26/17 [History] Albuterol/Ipratropium [DuoNeb 3.0-0.5 MG/3 ML] 3 ml INH TID 04/26/17 [History] Aspirin [Halfprin] 1 tab PO DAILY 04/26/17 [History] Budesonide [Pulmicort] 1 inh INH BID 04/26/17 [History] Diclofenac Sodium/Misoprostol [Diclofenac-Misoprost 75-0.2 Tb] 1 tab PO BID [History] Escitalopram [Lexapro] 20 mg PO DAILY 04/26/17 [History] Ferrous Sulfate 325 mg PO DAILY 04/26/17 [History] Formoterol Fumarate [Perforomist] 2 ml INH BID 04/26/17 [History] Furosemide [Lasix] 40 mg PO BIDMEALS 04/26/17 [History] Hydrocodone/Acetaminophen [[place] 5-325] 1 tab PO Q6HR PRN 04/26/17 [History] LORazepam [Ativan] 0.5 mg PO BID PRN 04/26/17 [History] Mirabegron [Myrbetriq] 50 mg PO DAILY 04/26/17 [History] Montelukast Sodium [Singulair] 10 mg PO BEDTIME 04/26/17 [History] Multivitamin [Multivitamins] 1 tab PO DAILY 04/26/17 [History] Nitroglycerin [Nitrostat] 0.4 mg PO .Q5MIN 04/26/17 [History] Potassium Chloride 20 meq PO DAILY 04/26/17 [History] Tiotropium [Spiriva HandiHaler] 1 puff IN DAILY 04/26/17 [History] Tolterodine [Detrol] 2 mg PO BID 04/26/17 [History] atorvaSTATin [Lipitor] 20 mg PO DAILY 04/26/17 [History] metFORMIN HCl [Metformin HCl] 500 mg PO BIDMEALS 04/26/17 [History] Albuterol [IJD: Albuterol] 3 ml INH Q4HR PRN #0 04/27/17 [Rx] Ciprofloxacin [Ciprofloxacin HCl] 500 mg PO BID #10 tablet 04/27/17 [Rx] Prednisone [IJD: Prednisone] 5 mg PO DAILY #0 04/27/17 [Rx] Past Medical History HEENT History: Reports: Impaired Vision Other HEENT History: wears glasses Cardiovascular History: Reports: Blood Clots/VTE/DVT, High Cholesterol, Hypertension, [place], Stents Respiratory History: Reports: Asthma, Bronchitis, Recurrent, COPD, PE, SOB, Other (See Below) Other Respiratory History: emphysema Gastrointestinal History: Reports: None Genitourinary History: Reports: BPH Musculoskeletal History: Reports: Osteoarthritis Neurological History: Reports: CVA Psychiatric History: Reports: Anxiety, Depression Endocrine/Metabolic History: Reports: Diabetes, Type II Hematologic History: Reports: Anemia, Blood Transfusion(s) Immunologic History: Reports: None Oncologic (Cancer) History: Reports: Bladder Dermatologic History: Reports: Other (See Below) Other Dermatologic History: multiple ecchymotic areas - Infectious Disease History Infectious Disease History: Reports: Other (See Below) Other Infectious Disease History: unknown - Past Surgical History HEENT Surgical History: Reports: Cataract Surgery, Other (See Below) Other HEENT Surgeries/Procedures: surgery on deviated septum Cardiovascular Surgical History: Reports: Coronary Artery Stent, Valve Replacement GI Surgical History: Reports: Cholecystectomy, Hernia, Abdominal Musculoskeletal Surgical History: Reports: Knee Replacement Social & Family History - Family History Family Medical History: Noncontributory - Tobacco Use Smoking Status *Q: Former Smoker Years of Tobacco use: 50 Packs/Tins Daily: 1 Used Tobacco, but Quit: Yes Month Tobacco Last Used: april 14 1976 Second Hand Smoke Exposure: No - Caffeine Use Caffeine Use: Reports: Coffee, Soda - Alcohol Use Days Per Week of Alcohol Use: 0 - Recreational Drug Use Recreational Drug Use: No - Living Situation & Occupation Living situation: Reports: , with Spouse Occupation: Retired ED ROS GENERAL - Review of Systems Review Of Systems: See Below Constitutional: Reports: Weakness, Decreased Appetite HEENT: Reports: No Symptoms Respiratory: Reports: Shortness of Breath Cardiovascular: Reports: No Symptoms Endocrine: Reports: No Symptoms GI/Abdominal: Reports: No Symptoms : Reports: No Symptoms Musculoskeletal: Reports: No Symptoms Skin: Reports: No Symptoms Neurological: Reports: No Symptoms Psychiatric: Reports: No Symptoms Hematologic/Lymphatic: Reports: No Symptoms Immunologic: Reports: No Symptoms ED EXAM, GENERAL - Physical Exam Exam: See Below Exam Limited By: No Limitations General Appearance: Alert, No Apparent Distress Eye Exam: Bilateral Eye: EOMI, PERRL Ears: Normal External Exam Nose: Normal Inspection Throat/Mouth: Normal Inspection, Normal Lips Head: Atraumatic Neck: Normal Inspection, Supple Respiratory/Chest: No Respiratory Distress, Lungs Clear, No Accessory Muscle Use Cardiovascular: Normal Peripheral Pulses, Regular Rate, Rhythm GI/Abdominal: Normal Bowel Sounds, Soft, Non-Tender Back Exam: Normal Inspection Extremities: Normal Inspection, Normal Range of Motion Neurological: Alert, Oriented, CN II-XII Intact Psychiatric: Normal Affect, Normal Mood Skin Exam: Warm, Dry Lymphatic: No Adenopathy Course - Vital Signs Text/Narrative:: All testing reviewed with patient, son and . Case discussed with Dr. Mauro ( Hospitalist @ [facility] in [place] who accepted patient on transfer). Patient refused to transfer and stated to family the he wants to . Last Recorded V/S: Last Vital Signs Temp 36.1 C 05/18/17 13:52 Pulse 77 05/18/17 13:52 Resp 22 H 05/18/17 13:52 BP 137/101 H 05/18/17 13:52 Pulse Ox 100 05/18/17 13:52 - Orders/Labs/Meds Orders: Active Orders 24 hr Category Date Time Status EKG Documentation Completion [RC] URGENT Care 05/18/17 15:06 Active Heparin Sodium/D5W [Heparin 25,000 Units in D5W 500 ML] Med 05/18/17 16:45 Ordered 25,000 units in 500 ml IV TITRATE Sodium Chloride 0.9% [Normal Saline] 1,000 ml Med 05/18/17 14:15 Active IV ASDIRECTED Medication Orders Sodium Chloride (Normal Saline) 1,000 mls @ 50 mls/hr IV ASDIRECTED PLACIDO Last Admin: 05/18/17 15:59 Dose: 50 mls/hr Heparin Sodium/Dextrose (Heparin 25,000 Units In D5w 500 Ml) 25,000 units in 500 mls @ 0 mls/hr IV TITRATE PLACIDO; 12 UNITS/KG/HR PRN Reason: Protocol Labs: Laboratory Tests 05/18/17 05/18/17 05/18/17 Range/Units 14:19 14:19 14:19 WBC 6.8 (5.0-10.0) 10^3/uL RBC 3.62 L (4.6-6.2) 10^6/uL Hgb 10.3 L (14.0-18.0) g/dL Hct 33.6 L (40.0-54.0) % MCV 92.8 (80-100) fL MCH 28.5 (27.0-34.0) pg MCHC 30.7 L (33.0-35.0) g/dL Plt Count 220 (150-450) 10^3/uL Neut % (Auto) 88.4 H (42.2-75.2) % Lymph % (Auto) 8.4 L (20.5-50.1) % [place] % (Auto) 2.8 (2-8) % Eos % (Auto) 0.3 L (1.0-3.0) % Baso % (Auto) 0.1 (0.0-1.0) % Add Manual Diff Yes Neutrophils % (Manual) 84 % Band Neutrophils % 3 % Lymphocytes % (Manual) 10 % Monocytes % (Manual) 3 % D-Dimer, Quantitative 1010 H (0-400) ng/mL Sodium 139 (135-145) mmol/L Potassium 5.6 H (3.6-5.0) mmol/L Chloride 98 L (101-111) mmol/L Carbon Dioxide 27.0 (21.0-31.0) mmol/L Anion Gap 19.6 BUN 34 H (7-18) mg/dL Creatinine 1.2 (0.6-1.3) mg/dL Est Cr Clr Drug Dosing 47.43 mL/min Estimated GFR (MDRD) 59 BUN/Creatinine Ratio 28.33 Glucose 182 H (74-105) mg/dL Calcium 9.5 (8.4-10.2) mg/dl Total Bilirubin 0.5 (0.2-1.0) mg/dL AST 34 (10-42) IU/L ALT 37 (10-60) IU/L Alkaline Phosphatase 100 (42-121) IU/L Troponin I 0.05 H* (0.00-0.02) ng/ml B-Natriuretic Peptide 206 H (0-100) pg/ml Total Protein 6.8 (6.7-8.2) g/dl Albumin 3.3 (3.2-5.5) g/dl Globulin 3.5 Albumin/Globulin Ratio 0.94 Meds: Medications Generic Name Dose Route Start Last Admin Trade Name Freq PRN Reason Stop Dose Admin Sodium Chloride 1,000 mls @ 50 mls/hr 05/18/17 14:15 05/18/17 15:59 Normal Saline IV 50 mls/hr ASDIRECTED PLACIDO Administration Heparin Sodium/Dextrose 25,000 units in 500 mls @ 0 mls/hr 05/18/17 16:45 Heparin 25,000 Units In D5w 500 Ml IV TITRATE PLACIDO Protocol 12 UNITS/KG/HR Discontinued Medications Generic Name Dose Route Start Last Admin Trade Name Freq PRN Reason Stop Dose Admin Heparin Sodium (Porcine) 5,000 units 05/18/17 16:45 Heparin Sodium IVPUSH 05/18/17 16:46 .BOLUS ONE Iopamidol 100 ml 05/18/17 15:53 05/18/17 15:56 Isovue-370 (76%) IVPUSH 05/18/17 15:54 100 ml ONETIME ONE Administration Departure - Departure Time of Disposition: 16:55 Disposition: Against Medical Advice 07 Condition: Fair Clinical Impression: Non-STEMI (non-ST elevated myocardial infarction) - Discharge Information Forms: ED Department Discharge, Refusal of Care AMA Additional Instructions: F/U w/ PCP - My Orders Last 24 Hours: My Active Orders 05/18/17 14:15 Sodium Chloride 0.9% [Normal Saline] 1,000 ml IV ASDIRECTED 05/18/17 15:06 EKG Documentation Completion [RC] URGENT 05/18/17 16:45 Heparin Sodium/D5W [Heparin 25,000 Units in D5W 500 ML] 25,000 units in 500 ml IV TITRATE - Assessment/Plan Last 24 Hours: My Active Orders 05/18/17 14:15 Sodium Chloride 0.9% [Normal Saline] 1,000 ml IV ASDIRECTED 05/18/17 15:06 EKG Documentation Completion [RC] URGENT 05/18/17 16:45 Heparin Sodium/D5W [Heparin 25,000 Units in D5W 500 ML] 25,000 units in 500 ml IV TITRATE
[2017-05-18 14:29] VITALS: BP 137/101
[2017-05-18] MEDS ORDERED: Iopamidol 755 Mg/ML 100 ML Bottle IVPUSH ONE (15:53)
[2017-05-18] MEDS ORDERED: Heparin Sodium/D5W 25,000 UNITS/500 ML BAG IV SCH (16:45)
[2017-05-18] MEDS ORDERED: Heparin Sodium 5,000 Units/ML Vial IVPUSH ONE (16:45)
--- NOTE | 2017-06-22 10:30 | EKG ---
05/18/2017 - ARGENT[place] BOYCE - FINDINGS: EKG shows a normal sinus rhythm. Nonspecific ST-segment changes. [facility] /[id number]
== END 2017-05-18 17:20 | disposition left against medical advice (07) ==
LOC: DL.ED 13:51
DX: I21.4 Non-ST elevation (NSTEMI) myocardial infarction (principal); H54.7 Unspecified visual loss; I25.10 Atherosclerotic heart disease of native coronary artery without angina pectoris; E78.00 Pure hypercholesterolemia, unspecified; I10 Essential (primary) hypertension; E11.9 Type 2 diabetes mellitus without complications; F41.9 Anxiety disorder, unspecified; F32.9 Major depressive disorder, single episode, unspecified; M19.90 Unspecified osteoarthritis, unspecified site; Z86.73 Personal history of transient ischemic attack (TIA), and cerebral infarction without residual deficits; J45.909 Unspecified asthma, uncomplicated; D64.9 Anemia, unspecified; Z88.1 Allergy status to other antibiotic agents; Z88.8 Allergy status to other drugs, medicaments and biological substances; Z95.5 Presence of coronary angioplasty implant and graft; Z88.2 Allergy status to sulfonamides; Z79.899 Other long term (current) drug therapy; Z87.891 Personal history of nicotine dependence; Z79.84 Long term (current) use of oral hypoglycemic drugs
CPT/HCPCS: 36415; 71020; 71260; 80053; 83880; 84484; 85025; 85379; 93005; 93010; 96360; 99284; 99285; J7030; Q9967

== ENCOUNTER 2017-07-07 23:10 | Observation (INO) | payer MEDICARE, OTHER ==
[2017-07-07] MEDS ORDERED: Albuterol/Ipratropium 3.0-0.5 MG/3 ML Neb Soln NEB ONE (23:23)
--- NOTE | 2017-07-07 23:25 | EDM.PDOC ---
ED HPI GENERAL MEDICAL PROBLEM - General Chief Complaint: Respiratory Problem Stated Complaint: JORGE BREATHE [id number] Time Seen by Provider: 07/07/17 23:20 Source of Information: Reports: Patient, Family () History Limitations: Reports: No Limitations - History of Present Illness INITIAL COMMENTS - FREE TEXT/NARRATIVE: 76 yo white male w/ c/o SOB X 3-4 days. Coughing up whitish sputum and No Chills / Fever. PMHx. CAHD, Oxygen Dependent COPD / Asthma, recurrent anemia and s/p 6 blood transfusions this year(2017), Last Hemoglobin 04/09/2017 11.6 . Pt. take 3 liters oxygen via nasal cannula Onset Date: 07/04/17 Onset Time: 12:00 Duration: Day(s): Location: Reports: Chest Severity: Moderate Improves with: Reports: None Worsens with: Reports: Breathing Associated Symptoms: Reports: Shortness of Breath - Related Data Allergies Allergy/AdvReac Type Severity Reaction Status Date / Time cefotaxime Allergy Rash Verified 07/07/17 23:37 clonazepam Allergy Hallucinati Verified 07/07/17 23:37 ons erythromycin base Allergy Cannot Verified 07/07/17 23:37 Remember erythromycin lactobionate Allergy Rash Verified 07/07/17 23:37 [From Erythrocin] roflumilast Allergy Rash Verified 07/07/17 23:37 sulfamethoxazole Allergy Itching Verified 07/07/17 23:37 [From Bactrim] trimethoprim [From Bactrim] Allergy Itching Verified 07/07/17 23:37 lilac pink herb Allergy Rash Uncoded 07/07/17 23:37 Home Meds: Home Meds Albuterol Sulfate [Proair Hfa] 1 puff INH Q4HR PRN 04/26/17 [History] Albuterol/Ipratropium [DuoNeb 3.0-0.5 MG/3 ML] 3 ml INH TID 04/26/17 [History] Aspirin [Halfprin] 1 tab PO DAILY 04/26/17 [History] Budesonide [Pulmicort] 1 inh INH BID 04/26/17 [History] Diclofenac Sodium/Misoprostol [Diclofenac-Misoprost 75-0.2 Tb] 1 tab PO BID [History] Escitalopram [Lexapro] 20 mg PO DAILY 04/26/17 [History] Ferrous Sulfate 325 mg PO DAILY 04/26/17 [History] Formoterol Fumarate [Perforomist] 2 ml INH BID 04/26/17 [History] Furosemide [Lasix] 40 mg PO BIDMEALS 04/26/17 [History] Hydrocodone/Acetaminophen [[place] 5-325] 1 tab PO Q6HR PRN 04/26/17 [History] LORazepam [Ativan] 0.5 mg PO BID PRN 04/26/17 [History] Mirabegron [Myrbetriq] 50 mg PO DAILY 04/26/17 [History] Montelukast Sodium [Singulair] 10 mg PO BEDTIME 04/26/17 [History] Multivitamin [Multivitamins] 1 tab PO DAILY 04/26/17 [History] Nitroglycerin [Nitrostat] 0.4 mg PO .Q5MIN 04/26/17 [History] Potassium Chloride 20 meq PO DAILY 04/26/17 [History] Tiotropium [Spiriva HandiHaler] 1 puff IN DAILY 04/26/17 [History] Tolterodine [Detrol] 2 mg PO BID 04/26/17 [History] atorvaSTATin [Lipitor] 20 mg PO DAILY 04/26/17 [History] metFORMIN HCl [Metformin HCl] 500 mg PO BIDMEALS 04/26/17 [History] Albuterol [IJD: Albuterol] 3 ml INH Q4HR PRN #0 04/27/17 [Rx] Ciprofloxacin [Ciprofloxacin HCl] 500 mg PO BID #10 tablet 04/27/17 [Rx] Prednisone [IJD: Prednisone] 5 mg PO DAILY #0 04/27/17 [Rx] Past Medical History HEENT History: Reports: Impaired Vision Other HEENT History: wears glasses Cardiovascular History: Reports: Blood Clots/VTE/DVT, High Cholesterol, Hypertension, [place], Stents Respiratory History: Reports: Asthma, Bronchitis, Recurrent, COPD, PE, SOB, Other (See Below) Other Respiratory History: emphysema Gastrointestinal History: Reports: None Genitourinary History: Reports: BPH Musculoskeletal History: Reports: Osteoarthritis Neurological History: Reports: CVA Psychiatric History: Reports: Anxiety, Depression Endocrine/Metabolic History: Reports: Diabetes, Type II Hematologic History: Reports: Anemia, Blood Transfusion(s) Immunologic History: Reports: None Oncologic (Cancer) History: Reports: Bladder Dermatologic History: Reports: Other (See Below) Other Dermatologic History: multiple ecchymotic areas - Infectious Disease History Infectious Disease History: Reports: Other (See Below) Other Infectious Disease History: unknown - Past Surgical History HEENT Surgical History: Reports: Cataract Surgery, Other (See Below) Other HEENT Surgeries/Procedures: surgery on deviated septum Cardiovascular Surgical History: Reports: Coronary Artery Stent, Valve Replacement GI Surgical History: Reports: Cholecystectomy, Hernia, Abdominal Musculoskeletal Surgical History: Reports: Knee Replacement Social & Family History - Family History Family Medical History: Noncontributory - Tobacco Use Smoking Status *Q: Former Smoker Years of Tobacco use: 50 Packs/Tins Daily: 1 Used Tobacco, but Quit: Yes Month Tobacco Last Used: april 14 1976 Second Hand Smoke Exposure: No - Caffeine Use Caffeine Use: Reports: Coffee, Soda - Alcohol Use Days Per Week of Alcohol Use: 0 - Recreational Drug Use Recreational Drug Use: No - Living Situation & Occupation Living situation: Reports: , with Spouse Occupation: Retired ED ROS GENERAL - Review of Systems Review Of Systems: See Below Constitutional: Reports: No Symptoms HEENT: Reports: No Symptoms Respiratory: Reports: Shortness of Breath Cardiovascular: Reports: No Symptoms Endocrine: Reports: No Symptoms GI/Abdominal: Reports: No Symptoms : Reports: No Symptoms Musculoskeletal: Reports: No Symptoms Skin: Reports: No Symptoms Neurological: Reports: No Symptoms Psychiatric: Reports: No Symptoms Hematologic/Lymphatic: Reports: Anemia Immunologic: Reports: No Symptoms ED EXAM, GENERAL - Physical Exam Exam: See Below Exam Limited By: No Limitations General Appearance: Alert, No Apparent Distress Eye Exam: Bilateral Eye: EOMI, PERRL Ears: Normal External Exam Nose: Normal Inspection Throat/Mouth: Normal Inspection Head: Atraumatic Neck: Normal Inspection Respiratory/Chest: No Respiratory Distress, Lungs Clear, Normal Breath Sounds, No Accessory Muscle Use, Chest Non-Tender Cardiovascular: Normal Peripheral Pulses, Regular Rate, Rhythm Peripheral Pulses: 2+: Radial (L), Radial (R) GI/Abdominal: Normal Bowel Sounds Back Exam: Normal Inspection Extremities: Normal Inspection, Normal Range of Motion, Non-Tender, No Pedal Edema Neurological: Alert, Oriented, CN II-XII Intact, Normal Cognition Psychiatric: Normal Affect Skin Exam: Warm, Dry, Intact, Normal Color Lymphatic: No Adenopathy Course - Vital Signs Last Recorded V/S: Last Vital Signs Temp 36.9 C 07/07/17 23:18 Pulse 105 H 07/07/17 23:18 Resp 24 H 07/07/17 23:18 BP 151/94 H 07/07/17 23:18 Pulse Ox 96 07/07/17 23:18 - Orders/Labs/Meds Orders: Active Orders 24 hr Category Date Time Status EKG Documentation Completion [RC] STAT Care 07/07/17 23:23 Active RT Aerosol Therapy [RC] ASDIRECTED Care 07/07/17 23:24 Active Sodium Chloride 0.9% [Normal Saline] 500 ml Med 07/07/17 23:30 Active IV ASDIRECTED Medication Orders Sodium Chloride (Normal Saline) 500 mls @ 100 mls/hr IV ASDIRECTED PLACIDO Last Admin: 07/07/17 23:39 Dose: 100 mls/hr Labs: Laboratory Tests 07/07/17 07/07/17 07/07/17 Range/Units 23:25 23:25 23:25 WBC 7.4 (5.0-10.0) 10^3/uL RBC 3.62 L (4.6-6.2) 10^6/uL Hgb 10.4 L (14.0-18.0) g/dL Hct 33.2 L (40.0-54.0) % MCV 91.7 (80-100) fL MCH 28.7 (27.0-34.0) pg MCHC 31.3 L (33.0-35.0) g/dL Plt Count 284 (150-450) 10^3/uL Neut % (Auto) 64.7 (42.2-75.2) % Lymph % (Auto) 23.5 (20.5-50.1) % [place] % (Auto) 9.1 H (2-8) % Eos % (Auto) 2.3 (1.0-3.0) % Baso % (Auto) 0.4 (0.0-1.0) % D-Dimer, Quantitative 1180 H (0-400) ng/mL Sodium 137 (135-145) mmol/L Potassium 4.4 (3.6-5.0) mmol/L Chloride 98 L (101-111) mmol/L Carbon Dioxide 27.0 (21.0-31.0) mmol/L Anion Gap 16.4 BUN 22 H (7-18) mg/dL Creatinine 1.2 (0.6-1.3) mg/dL Est Cr Clr Drug Dosing 44.13 mL/min Estimated GFR (MDRD) 59 BUN/Creatinine Ratio 18.33 Glucose 157 H (74-105) mg/dL Calcium 9.7 (8.4-10.2) mg/dl Total Bilirubin 0.4 (0.2-1.0) mg/dL AST 23 (10-42) IU/L ALT 16 (10-60) IU/L Alkaline Phosphatase 132 H (42-121) IU/L Troponin I 0.06 H* (0.00-0.02) ng/ml B-Natriuretic Peptide 210 H (0-100) pg/ml Total Protein 7.3 (6.7-8.2) g/dl Albumin 3.5 (3.2-5.5) g/dl Globulin 3.8 Albumin/Globulin Ratio 0.92 Meds: Medications Generic Name Dose Route Start Last Admin Trade Name Freq PRN Reason Stop Dose Admin Sodium Chloride 500 mls @ 100 mls/hr 07/07/17 23:30 07/07/17 23:39 Normal Saline IV 100 mls/hr ASDIRECTED PLACIDO Administration Discontinued Medications Generic Name Dose Route Start Last Admin Trade Name Freq PRN Reason Stop Dose Admin Albuterol/Ipratropium 3 ml 07/07/17 23:23 07/07/17 23:38 Duoneb 3.0-0.5 Mg/3 Ml NEB 07/07/17 23:24 3 ml ONETIME ONE Administration Departure - Departure Time of Disposition: 00:26 Disposition: Admitted As Inpatient 64 Condition: Fair Clinical Impression: COPD exacerbation Anemia Qualifiers: Anemia type: unspecified type Qualified Code(s): D64.9 - Anemia, unspecified - Discharge Information Referrals: Riley West MD [Physician] - Forms: ED Department Discharge - My Orders Last 24 Hours: My Active Orders 07/07/17 23:23 EKG Documentation Completion [RC] STAT 07/07/17 23:24 RT Aerosol Therapy [RC] ASDIRECTED 07/07/17 23:30 Sodium Chloride 0.9% [Normal Saline] 500 ml IV ASDIRECTED - Assessment/Plan Last 24 Hours: My Active Orders 07/07/17 23:23 EKG Documentation Completion [RC] STAT 07/07/17 23:24 RT Aerosol Therapy [RC] ASDIRECTED 07/07/17 23:30 Sodium Chloride 0.9% [Normal Saline] 500 ml IV ASDIRECTED
[2017-07-07] MEDS ORDERED: Sodium Chloride 0.9% 500 ML IV SCH (23:30)
[2017-07-08] MEDS ORDERED: Albuterol 6.7 GM Inhaler INH PRN (01:03)
[2017-07-08] MEDS ORDERED: LORazepam 0.5 MG Tab PO PRN (01:03)
[2017-07-08] MEDS ORDERED: Albuterol 0.083% 2.5 MG/3 ML Neb Soln INH PRN (01:03)
[2017-07-08] MEDS ORDERED: Acetaminophen/HYDROcodone 325-5 MG Tab PO PRN (01:03)
[2017-07-08] MEDS ORDERED: Nitroglycerin 0.4 MG Tab.SL SL PRN (01:03)
[2017-07-08] MEDS ORDERED: Insulin Aspart 100 Units/ML 3 ML Pen SUBCUT PRN (01:07)
[2017-07-08] MEDS ORDERED: Levofloxacin/Dextrose 5%-Water 500 MG in Premix Bag 1 BAG IV ONE (01:15)
[2017-07-08] MEDS ORDERED: Iopamidol 755 Mg/ML 100 ML Bottle IVPUSH ONE (01:22)
[2017-07-08] MEDS ORDERED: Heparin Sodium 5,000 Units/ML Vial SUBCUT SCH (06:00)
--- NOTE | 2017-07-08 06:14 | HP ---
CHIEF COMPLAINT: Shortness of breath. HISTORY OF PRESENTING ILLNESS: Mr. Hipolito Atkinson is a 76-year-old male with medical history significant for hypertension; hyperlipidemia; type 2 diabetes mellitus; coronary artery disease, status post stents placed in the past; history of infrarenal abdominal aortic aneurysm; chronic congestive heart failure; obesity; chronic hypoxic respiratory failure with requiring home oxygen; and chronic obstructive pulmonary airway disease, presented to the ER today with complaints of increasing shortness of breath and noted to have possible pneumonia, so got admitted to the hospital. At this time, the patient claims that since yesterday, he has been getting short of breath. He grades the shortness of breath as 8/10 in intensity, which got aggravated on exertion, relieved with rest, not associated with any nausea or vomiting. Denies any cough with sputum in the last 2 days. Denies any fevers or chills in the last 2 days. Denies any abdominal pain. No complaints of nausea, vomiting, or diarrhea in the last 2 days. No sick contacts. No recent travel. The patient denied any history of chest pains on exertion, but has mild dyspnea on exertion. He uses a walker most of the times to ambulate. Denied any hematemesis, hematochezia, or melanotic stools. Normal bowel and bladder habits, otherwise. The patient had history of bladder cancer and had received treatments for his bladder cancer in the past and periodically needs cystoscopies. REVIEW OF SYSTEMS: A complete review of systems including skin; ears, nose, and throat; cardiovascular system; respiratory system; gastrointestinal system; genitourinary system; hematology/oncology; neurology; allergy/immunology; and constitutional were all evaluated and were negative except for the above-said notes. PAST MEDICAL HISTORY: Significant for: 1. Hypertension. 2. Hyperlipidemia. 3. Type 2 diabetes mellitus. 4. Coronary artery disease, status post stents placed in the past. 5. Infrarenal abdominal aortic aneurysm. 6. 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 7. History of deep venous thrombosis and pulmonary embolism in the past. 8. History of anticoagulation with Coumadin in the past. 9. Chronic congestive heart failure. 10.History of myocardial infarction. 11.Obesity. 12.Chronic hypoxic respiratory failure requiring home oxygen. PAST SURGICAL HISTORY: Significant for: 1. Total knee arthroplasty. 2. Finger reattachment. 3. Cholecystectomy. 4. Cataract extraction. 5. Status post cardiac stent placements. 6. 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 7. Nasal septal surgery. 8. Hernia repair, inguinal. FAMILY HISTORY: Significant for coronary artery disease in his sister and cancer in his sister. Cancer in one of his brother and heart disease in one of his brother. SOCIAL HISTORY: History of smoking tobacco in the past, but quit smoking back in 1995. No history of alcohol intake. ALLERGIC HISTORY: The patient noted to have allergies to Daliresp, Bactrim, cefotaxime, clonazepam, and erythromycin. HOME MEDICATIONS: Include: 1. Spiriva inhalation daily, 18 mcg. 2. Nitroglycerin 0.4 mg sublingual as needed for chest pain. 3. Prednisone 10 mg daily. 4. Ferrous sulfate 325 mg tablet. 5. Potassium chloride 10 mEq daily. 6. Kimball 5/325 mg daily. 7. Aspirin 81 mg daily. 8. Lexapro 20 mg daily. 9. Lipitor 20 mg daily. 10.Home oxygen. 11.Perforomist nebulizers. 12.Detrol 2 mg daily. 13.Pulmicort nebulizers. 14.Lorazepam 0.5 mg 2 times a day as needed. 15.Metformin 500 mg 2 times daily. 16.Multivitamin 1 tablet daily. PHYSICAL EXAMINATION: Vital Signs: Temperature of 98.4, pulse of 105, blood pressure 151/94, respiratory rate of 24, and saturating at 96% on 3 L of oxygen. General Appearance: The patient is well oriented to time, place, and person. Follows commands spontaneously. Cardiovascular System: S1 and S2 heard with normal intensity. No gallops. Respiratory System: Clear to auscultation bilaterally except for mild crepitations at the bases. No wheezes. Abdomen: Soft. Bowel sounds positive. Nontender. No rigidity. Extremities: No edema in bilateral lower extremities. Neurologic: No gross focal neurological deficits. LABORATORY DATA: WBC 7.4, hemoglobin 10.4, hematocrit 33.2, and platelet count 284. D-dimer 1180. Sodium 137, potassium 4.4, chloride 98, bicarb 27, BUN 22, creatinine 1.2, and glucose 157. AST 23, ALT 16, and alkaline phosphatase 132. Troponin 0.06. BNP 210. ASSESSMENT: 1. Shortness of breath. 2. Possible bronchitis. 3. Elevated D-dimer. 4. Chronic hypoxic respiratory failure. 5. Chronic obstructive pulmonary airway disease. 6. Hypertension. 7. Type 2 diabetes mellitus. 8. Hyperlipidemia. 9. Coronary artery disease, status post stents placed in the past. 10.History of abdominal aortic aneurysm, infrarenal. 11.Status post aortic valve replaced with a pig valve. 12.Chronic congestive heart failure. 13.History of deep venous thrombosis and pulmonary embolism in the past. PLAN: 1. Shortness of breath. The patient presents with increasing shortness of breath. Chest x-ray shows possible infiltrates in the left lower lobe, but the patient denied any fevers, chills, or cough with sputum. He does not have any leukocytosis, no fevers or chills. We will empirically start him on IV antibiotic with Levaquin. We will obtain blood cultures and sputum cultures, and we will closely follow. 2. Elevated D-dimer. The patient noted to have history of DVT and PE in the past. He was on Coumadin in the past, but was discontinued. Given his elevated D-dimer, one might consider getting a CT scan of the chest with PE protocol. His creatinine seems to be in the acceptable range at 1.2 and estimated GFR at 59. We will get a CT scan with PE protocol at this time to rule out any PE to cause this increasing shortness of breath. 3. Chronic hypoxic respiratory failure. The patient saturating at 96% on 3 L of oxygen. We will continue the same. 4. Hypertension. The patient's blood pressure seems to be in the acceptable range. Continue with current antihypertensive medication. 5. Type 2 diabetes mellitus. He uses metformin at home. Since we are getting a CT scan of the chest, we will hold off any metformin for now, check his fingersticks with each meal, and have him on supplemental scale insulin as needed for additional coverage of his blood glucose. 6. Deep venous thrombosis prophylaxis. We will start him on heparin 5000 units subcutaneously q.8 hourly for DVT prophylaxis. 7. Code status. The patient wants to be DNR/DNI. Discussed with family members at bedside. Discussed with ER physician regarding the plan of care. Reviewed the labs and medications. Reviewed the old charts. [facility] /[id number]
[2017-07-08 07:12] LABS: CHLORIDE,CL 100 mmol/L (101-111); SODIUM,NA 136 mmol/L (135-145)
[2017-07-08] MEDS ORDERED: Furosemide 40 MG Tab PO SCH (08:00)
[2017-07-08] MEDS ORDERED: Non-Formulary Medication 1 Each (Formoterol Fumarate [Perforomist] 2 ML) INH SCH (09:00)
[2017-07-08] MEDS ORDERED: [UNRECOGNIZED DRUG - OTHER] PO SCH (09:00)
[2017-07-08] MEDS ORDERED: Ferrous Sulfate 325 MG Tab PO SCH (09:00)
[2017-07-08] MEDS ORDERED: Escitalopram 10 MG Tab PO SCH (09:00)
[2017-07-08] MEDS ORDERED: DICLOFENAC SODIUM PO SCH (09:00)
[2017-07-08] MEDS ORDERED: Budesonide 0.5 MG/2 ML Neb Susp INH SCH (09:00)
[2017-07-08] MEDS ORDERED: Tiotropium Inhaler 18 MCG Inhalation Powder Cap Kit of 5 INH SCH (09:00)
[2017-07-08] MEDS ORDERED: Tolterodine 2 MG Tab PO SCH (09:00)
[2017-07-08] MEDS ORDERED: predniSONE 10 MG Tab PO SCH (09:00)
[2017-07-08] MEDS ORDERED: Potassium Chloride 10 MEQ Tab.ER PO SCH (09:00)
[2017-07-08] MEDS ORDERED: Albuterol/Ipratropium 3.0-0.5 MG/3 ML Neb Soln INH SCH (09:00)
[2017-07-08] MEDS ORDERED: atorvaSTATin 20 MG Tab PO SCH (09:00)
[2017-07-08] MEDS ORDERED: Aspirin 81 MG Tab.EC PO SCH (09:00)
[2017-07-08] MEDS ORDERED: MISOPROSTOL PO SCH (09:00)
[2017-07-08] MEDS ORDERED: Non-Formulary Medication 1 Each (Mirabegron [Myrbetriq] 50 MG) PO SCH (09:00)
[2017-07-08] MEDS ORDERED: Multivitamins, Therapeutic with Minerals Tab PO SCH (09:00)
[2017-07-08 11:14] VITALS: BP 106/68
[2017-07-08] MEDS ORDERED: FLU VAC QS 17-18(4YR UP)CEL/PF 60 MCG/0.5 ML Syringe IM ONE (11:19)
--- NOTE | 2017-07-08 13:56 | DISCH ---
ADMITTING DIAGNOSES: 1. Increasing shortness of breath. 2. Possible acute bronchitis. DISCHARGE DIAGNOSES: 1. Shortness of breath, resolved. 2. Acute bronchitis, improved with Levaquin. 3. CT scan of the chest with PE protocol, showed no evidence of PE, no evidence of consolidation, no evidence of infiltrates, no evidence of pulmonary edema. HISTORY OF PRESENTING ILLNESS: Mr. Hipolito Atkinson is a 76-year-old male with a medical history significant for hypertension, hyperlipidemia, type 2 diabetes mellitus, coronary artery disease, status post stents placed in the past, and infrarenal abdominal aortic aneurysm, incidental finding, chronic congestive heart failure, was admitted to the hospital with complaints of increasing shortness of breath and chest x-ray. There were questionable infiltrates, so the patient was started on IV antibiotics. There was elevated D-dimer on this admission. Given his history of DVT and PE in the past, we did a CT scan of the chest with PE protocol which did not show any evidence of pulmonary embolism, no evidence of consolidation, no evidence of infiltrates, or no evidence of pulmonary edema noted on the CT scan. The patient responded well to the treatment. He is at his baseline. The patient's claims that yesterday they had to keep the doors open as they were some changes in the bedding and the patient was exposed to cold air which could have triggered these symptoms. The patient is on nebulizers at home, so patient is advised to continue with nebulizers and inhalation treatment. The patient feels comfortable in going back home. He is discharged home in stable condition. He is advised to follow with his primary care physician as scheduled. DISCHARGE MEDICATIONS: Include; 1. Albuterol 3 mL inhalation every 4 hours as needed for shortness of breath. 2. DuoNeb 3 mL 3 times a day inhalation. 3. Aspirin 81 mg daily. 4. Pulmicort 0.5 mg inhalation twice a day. 5. Diclofenac sodium with misoprostol 1 tablet oral twice a day. 6. Vitamin D2 2000 units at bedtime. 7. Lexapro 20 mg daily. 8. Ferrous sulfate 325 mg daily. 9. Perforomist 2 mL inhalation twice a day. 10.Lasix 40 mg twice a day with meals. 11.Hydrocodone with acetaminophen 5/325 mg as needed for pain every 6 hours. 12.Lorazepam 0.5 mg twice a day as needed for anxiety. 13.Levaquin 250 mg oral daily for next 3 days. 14.Mirabegron 50 mg daily. 15.Montelukast 10 mg at bedtime. 16.Multivitamin 1 tablet daily. 17.Nitroglycerin 0.4 mg sublingual as needed for chest pain. 18.Potassium chloride 20 mEq daily. 19.Prednisone 10 mg daily. 20.Spiriva 1 puff inhalation daily. 21.Detrol 2 mg oral twice a day. 22.Lipitor 20 mg daily. 23.Metformin 1000 mg twice a day. The patient is advised to resume metformin from 07/10/2018 given his recent exposure to CT dye. PHYSICAL EXAMINATION: Vital Signs: On the day of discharge vitals; temperature of 98.6, pulse of 95, blood pressure 139/72, respiratory rate of 20, saturating at 96% on 3 L of oxygen. General Appearance: The patient is alert and oriented to time, place, and person. Follows commands spontaneously. Cardiovascular System: S1 and S2 heard with normal intensity. No gallops. Respiratory System: Clear to auscultation bilaterally. No wheeze. No crepitations. Abdomen: Soft. Bowel sounds positive. Nontender. No rigidity. Extremities: No edema in bilateral lower extremities. Neurology: No gross focal neurological deficit. CONDITION ON ADMISSION: Poor. CONDITION ON DISCHARGE: Stable. DISPOSITION: Discharged to home. ACTIVITY: As tolerated. The patient usually uses a walker at home so the patient is encouraged to use the walker all the time. DIET: Cardiac healthy diet with consistent carbohydrate diet. FOLLOWUP: Follow with primary care physician in next 2 weeks of time. The patient was explained about the addition of Levaquin and educated about starting the metformin on Sunday which the patient and the family members, understands and verbalized the same. [facility] /[id number]
[2017-07-08] MEDS ORDERED: Cholecalciferol (Vitamin D3) 400 Unit Tab PO SCH (21:00)
[2017-07-08] MEDS ORDERED: Montelukast 10 MG Tab PO SCH (21:00)
[2017-07-09] MEDS ORDERED: Levofloxacin/Dextrose 5%-Water 250 MG in Premix Bag 1 BAG IV SCH (01:00)
--- NOTE | 2017-07-09 08:56 | EKG ---
07/07/2017- [place] BOYCE - This 12-lead EKG shows normal sinus rhythm with heart rate of 94. ID interval of 211. No significant ST elevation or ST depression noted on this 12-lead EKG. Nonspecific ST-T wave changes noted on lead V2, V3. [facility] /[id number]
== END 2017-07-08 12:55 | disposition home or self-care (01) ==
LOC: DL.ED 23:10 → DL.MS 07-08 00:42 → UNDOADMOB 07-08 00:42 → DL.MS 07-08 01:59
PROVIDERS: ADMIT Internal Medicine; ATTEND Internal Medicine
DX: J20.9 Acute bronchitis, unspecified (principal); E78.5 Hyperlipidemia, unspecified; E11.9 Type 2 diabetes mellitus without complications; I25.10 Atherosclerotic heart disease of native coronary artery without angina pectoris; I11.0 Hypertensive heart disease with heart failure; I50.9 Heart failure, unspecified; J96.10 Chronic respiratory failure, unspecified whether with hypoxia or hypercapnia; J44.9 Chronic obstructive pulmonary disease, unspecified; Z99.81 Dependence on supplemental oxygen; Z79.82 Long term (current) use of aspirin; Z79.52 Long term (current) use of systemic steroids; Z79.84 Long term (current) use of oral hypoglycemic drugs; Z79.899 Other long term (current) drug therapy; Z95.2 Presence of prosthetic heart valve; Z86.718 Personal history of other venous thrombosis and embolism; Z86.711 Personal history of pulmonary embolism; Z96.659 Presence of unspecified artificial knee joint; Z98.49 Cataract extraction status, unspecified eye; Z90.49 Acquired absence of other specified parts of digestive tract; Z98.890 Other specified postprocedural states; Z87.891 Personal history of nicotine dependence; Z23 Encounter for immunization
CPT/HCPCS: 36415; 71010; 71260; 80048; 80053; 82962; 83880; 84484; 85025; 85027; 85379; 93005; 93010; 96361; 96365; 96372; 99285; A9270; G0378; J1644; J1956; J7040; Q9967; 90674; 96360; G0008

== ENCOUNTER 2017-07-23 06:01 | Emergency (ER) | payer MEDICARE, OTHER ==
[2017-07-23 06:11] VITALS: BP 117/75
--- NOTE | 2017-07-23 06:21 | EDM.PDOC ---
ED HPI GENERAL MEDICAL PROBLEM - General Chief Complaint: Gastrointestinal Problem Stated Complaint: AMBULANCE Time Seen by Provider: 07/23/17 06:18 Source of Information: Reports: Patient, Family History Limitations: Reports: No Limitations - History of Present Illness INITIAL COMMENTS - FREE TEXT/NARRATIVE: sudden onset vomiting blood tonight, denies prior Hx. gives h/o low Hb req' transf, March had 4 units and no etio found. family states pt woke up started vomiting dark brown material all over the bed and on himself. manage to get most into a garbage can. Treatments SHRIMP PEELER: Reports: IV/IO - Related Data Allergies Allergy/AdvReac Type Severity Reaction Status Date / Time cefotaxime Allergy Rash Verified 07/23/17 06:28 clonazepam Allergy Hallucinati Verified 07/23/17 06:28 ons erythromycin base Allergy Cannot Verified 07/23/17 06:28 Remember erythromycin lactobionate Allergy Rash Verified 07/23/17 06:28 [From Erythrocin] roflumilast Allergy Rash Verified 07/23/17 06:28 sulfamethoxazole Allergy Itching Verified 07/23/17 06:28 [From Bactrim] trimethoprim [From Bactrim] Allergy Itching Verified 07/23/17 06:28 lilac pink herb Allergy Rash Uncoded 07/23/17 06:28 Home Meds: Home Meds Albuterol Sulfate [Proair Hfa] 1 puff INH Q4HR PRN 04/26/17 [History] Albuterol/Ipratropium [DuoNeb 3.0-0.5 MG/3 ML] 3 ml INH TID 04/26/17 [History] Aspirin [Halfprin] 1 tab PO DAILY 04/26/17 [History] Budesonide [Pulmicort] 1 inh INH BID 04/26/17 [History] Diclofenac Sodium/Misoprostol [Diclofenac-Misoprost 75-0.2 Tb] 1 tab PO BID [History] Escitalopram [Lexapro] 20 mg PO DAILY 04/26/17 [History] Ferrous Sulfate 325 mg PO DAILY 04/26/17 [History] Formoterol Fumarate [Perforomist] 2 ml INH BID 04/26/17 [History] Furosemide [Lasix] 40 mg PO BIDMEALS 04/26/17 [History] Hydrocodone/Acetaminophen [Marlow 5-325] 1 tab PO Q6HR PRN 04/26/17 [History] LORazepam [Ativan] 0.5 mg PO BID PRN 04/26/17 [History] Mirabegron [Myrbetriq] 50 mg PO DAILY 04/26/17 [History] Montelukast Sodium [Singulair] 10 mg PO BEDTIME 04/26/17 [History] Multivitamin [Multivitamins] 1 tab PO DAILY 04/26/17 [History] Nitroglycerin [Nitrostat] 0.4 mg PO .Q5MIN PRN 04/26/17 [History] Potassium Chloride 20 meq PO DAILY 04/26/17 [History] Tiotropium [Spiriva HandiHaler] 1 puff IN DAILY 04/26/17 [History] Tolterodine [Detrol] 2 mg PO BID 04/26/17 [History] atorvaSTATin [Lipitor] 20 mg PO DAILY 04/26/17 [History] Albuterol [IJD: Albuterol] 3 ml INH Q4HR PRN #0 04/27/17 [Rx] Ergocalciferol (Vitamin D2) [Vitamin D2] 2,000 units PO BEDTIME 07/08/17 [ History] Levofloxacin [Levaquin] 250 mg PO DAILY #3 tablet 07/08/17 [Rx] Prednisone [IJD: Prednisone] 10 mg PO DAILY 07/08/17 [History] metFORMIN HCl [Metformin HCl] 1,000 mg PO BIDMEALS #0 07/08/17 [Rx] Past Medical History HEENT History: Reports: Impaired Vision Other HEENT History: wears glasses Cardiovascular History: Reports: Blood Clots/VTE/DVT, High Cholesterol, Hypertension, [place], Stents Respiratory History: Reports: Asthma, Bronchitis, Recurrent, COPD, PE, SOB, Other (See Below) Other Respiratory History: emphysema Gastrointestinal History: Reports: None Genitourinary History: Reports: BPH Musculoskeletal History: Reports: Osteoarthritis Neurological History: Reports: CVA Psychiatric History: Reports: Anxiety, Depression Endocrine/Metabolic History: Reports: Diabetes, Type II Hematologic History: Reports: Anemia, Blood Transfusion(s) Immunologic History: Reports: None Oncologic (Cancer) History: Reports: Bladder Dermatologic History: Reports: Other (See Below) Other Dermatologic History: multiple ecchymotic areas - Infectious Disease History Infectious Disease History: Reports: Other (See Below) Other Infectious Disease History: unknown - Past Surgical History HEENT Surgical History: Reports: Cataract Surgery, Other (See Below) Other HEENT Surgeries/Procedures: surgery on deviated septum Cardiovascular Surgical History: Reports: Coronary Artery Stent, Valve Replacement Other Cardiovascular Surgeries/Procedures: CHF GI Surgical History: Reports: Cholecystectomy, Hernia, Abdominal Musculoskeletal Surgical History: Reports: Knee Replacement Social & Family History - Family History Family Medical History: Noncontributory Cardiac: Reports: [place] Endocrine/Metabolic: Reports: Diabetes, Type I Oncologic: Reports: Colon - Tobacco Use Smoking Status *Q: Former Smoker Years of Tobacco use: 50 Packs/Tins Daily: 1 Used Tobacco, but Quit: No Month Tobacco Last Used: april 14 1976 Second Hand Smoke Exposure: No - Caffeine Use Caffeine Use: Reports: Soda - Alcohol Use Days Per Week of Alcohol Use: 0 - Recreational Drug Use Recreational Drug Use: No - Living Situation & Occupation Living situation: Reports: , with Spouse Occupation: Retired ED ROS GENERAL - Review of Systems Review Of Systems: ROS reveals no pertinent complaints other than HPI. ED EXAM, GI/ABD - Physical Exam Exam: See Below Exam Limited By: No Limitations General Appearance: Alert, WD/WN, No Apparent Distress Ears: Hearing Grossly Normal Nose: Other (no gross blood noted) Throat/Mouth: Normal Voice, No Airway Compromise, Other (dried brownish material ) Head: Atraumatic Neck: Non-Tender, Full Range of Motion Respiratory/Chest: No Respiratory Distress Cardiovascular: Regular Rate, Rhythm GI/Abdominal Exam: Soft, Non-Tender Rectal (Males) Exam: Other (brown stool not black no blood) Neurological: Alert, Oriented, Normal Cognition, No Motor/Sensory Deficits Psychiatric: Normal Affect, Normal Mood Skin Exam: Warm, Dry, Normal Color Lymphatic: No Adenopathy Course - Vital Signs Last Recorded V/S: Last Vital Signs Temp 36.2 C 07/23/17 06:01 Pulse 93 07/23/17 06:01 Resp 21 H 07/23/17 06:01 BP 117/75 07/23/17 06:01 Pulse Ox 96 07/23/17 06:01 - Orders/Labs/Meds Orders: Active Orders 24 hr Category Date Time Status CBC WITH AUTO DIFF [HEME] Stat Lab 07/23/17 06:25 Results INR,PT,PROTHROMBIN TIME [COAG] Stat Lab 07/23/17 06:25 Received MANUAL DIFFERENTIAL QA/NC [HEME] Stat Lab 07/23/17 06:25 Results PTT,PARTIAL THROMBOPLSTIN TIME [COAG] Stat Lab 07/23/17 06:25 Received Pantoprazole 40 MG in Sodium Chloride 0.9% @ 20 MLS/HR( Med 07/23/17 07:03 Ordered 100ml) Pantoprazole [ProTONIX IV] 40 mg Sodium Chloride 0.9% [Normal Saline] 100 ml IV .CONTINUOS Labs: Laboratory Tests 07/23/17 07/23/17 07/23/17 Range/Units 06:25 06:25 06:25 WBC 12.9 H (5.0-10.0) 10^3/uL RBC 3.31 L (4.6-6.2) 10^6/uL Hgb 9.2 L (14.0-18.0) g/dL Hct 29.5 L (40.0-54.0) % MCV 89.1 D (80-100) fL MCH 27.8 (27.0-34.0) pg MCHC 31.2 L (33.0-35.0) g/dL Plt Count 383 D (150-450) 10^3/uL Neut % (Auto) 58.2 (42.2-75.2) % Lymph % (Auto) 32.2 (20.5-50.1) % [place] % (Auto) 8.9 H (2-8) % Eos % (Auto) 0.5 L (1.0-3.0) % Baso % (Auto) 0.2 (0.0-1.0) % Add Manual Diff Yes APTT 25.7 (22.0-34.0) SEC Sodium 132 L (135-145) mmol/L Potassium 5.0 (3.6-5.0) mmol/L Chloride 92 L (101-111) mmol/L Carbon Dioxide 26.0 (21.0-31.0) mmol/L Anion Gap 19.0 BUN 68 H D (7-18) mg/dL Creatinine 1.9 H (0.6-1.3) mg/dL Est Cr Clr Drug Dosing 28.92 mL/min Estimated GFR (MDRD) 34 BUN/Creatinine Ratio 35.78 Glucose 172 H (74-105) mg/dL Calcium 9.1 (8.4-10.2) mg/dl Total Bilirubin 0.5 (0.2-1.0) mg/dL AST 25 (10-42) IU/L ALT 16 (10-60) IU/L Alkaline Phosphatase 101 (42-121) IU/L Total Protein 6.2 L (6.7-8.2) g/dl Albumin 2.8 L (3.2-5.5) g/dl Globulin 3.4 Albumin/Globulin Ratio 0.82 Meds: Medications Discontinued Medications Generic Name Dose Route Start Last Admin Trade Name Freq PRN Reason Stop Dose Admin Pantoprazole Sodium 80 mg 07/23/17 07:02 Protonix Iv IVPUSH 07/23/17 07:03 .BOLUS ONE - Re-Assessments/Exams Free Text/Narrative Re-Assessment/Exam: 07/23/17 07:[address] West @ who kindly accepted pt. Departure - Departure Time of Disposition: 07:04 Disposition: DC/Tfer to Acute Hospital 02 Condition: Fair Clinical Impression: Upper GI bleed - Discharge Information Forms: Interfacility Transfer EMTALA - My Orders Last 24 Hours: My Active Orders 07/23/17 06:25 CBC WITH AUTO DIFF [HEME] Stat INR,PT,PROTHROMBIN TIME [COAG] Stat MANUAL DIFFERENTIAL QA/NC [HEME] Stat PTT,PARTIAL THROMBOPLSTIN TIME [COAG] Stat 07/23/17 07:03 Pantoprazole 40 MG in Sodium Chloride 0.9% @ 20 MLS/HR(100ml) Pantoprazole [ ProTONIX IV] 40 mg Sodium Chloride 0.9% [Normal Saline] 100 ml IV .CONTINUOS - Assessment/Plan Last 24 Hours: My Active Orders 07/23/17 06:25 CBC WITH AUTO DIFF [HEME] Stat INR,PT,PROTHROMBIN TIME [COAG] Stat MANUAL DIFFERENTIAL QA/NC [HEME] Stat PTT,PARTIAL THROMBOPLSTIN TIME [COAG] Stat 07/23/17 07:03 Pantoprazole 40 MG in Sodium Chloride 0.9% @ 20 MLS/HR(100ml) Pantoprazole [ ProTONIX IV] 40 mg Sodium Chloride 0.9% [Normal Saline] 100 ml IV .CONTINUOS
[2017-07-23] MEDS ORDERED: Pantoprazole 40 MG Vial IVPUSH ONE (07:02)
[2017-07-23] MEDS ORDERED: Pantoprazole 40 MG in Sodium Chloride 0.9% 100 ML IV SCH (07:03)
[2017-07-23] MEDS ORDERED: Ondansetron 4 MG/2 ML SDV IV ONE (07:56)
== END 2017-07-23 08:25 ==
LOC: DL.ED 06:01
DX: K92.2 Gastrointestinal hemorrhage, unspecified (principal); I10 Essential (primary) hypertension; E78.00 Pure hypercholesterolemia, unspecified; F32.9 Major depressive disorder, single episode, unspecified; E11.9 Type 2 diabetes mellitus without complications; Z86.2 Personal history of diseases of the blood and blood-forming organs and certain disorders involving the immune mechanism; Z87.891 Personal history of nicotine dependence; Z79.2 Long term (current) use of antibiotics; Z79.84 Long term (current) use of oral hypoglycemic drugs; Z79.82 Long term (current) use of aspirin; Z79.899 Other long term (current) drug therapy; Z88.1 Allergy status to other antibiotic agents; Z88.2 Allergy status to sulfonamides; Z88.8 Allergy status to other drugs, medicaments and biological substances; Z91.048 Other nonmedicinal substance allergy status
CPT/HCPCS: 36415; 80053; 82272; 85025; 85610; 85730; 96365; 96375; 99285; C9113; J2405; J7050